=== PATIENT | female | born 1945 | race Two or more races ===

== ENCOUNTER → 2023-10-19 11:09 | Outpatient (REF) | payer MEDICARE, SELFPAY ==
[2023-10-19 15:51] LABS: % Basophils 0.6 % (0-2); % Eosinophils 3.2 % (0-6); % Immature Granulocytes 0.3 % (0-0.5); % Monocytes 9.8 % (1.7-9.3); % Neutrophils 65.1 % (42.2-75.2); Absolute Eosinophils 0.1 10^3/uL (0-0.7); Absolute Lymphocytes 0.7 10^3/uL (1.2-3.4); Absolute Monocytes 0.3 10^3/uL (0.1-0.6); Absolute Neutrophils 2.3 10^3/uL (1.4-6.5); Hematocrit 25.1 % (37.0-47.0); Hemoglobin 8.4 g/dL (12.0-16.0); Mean Corp Hgb Conc. 33.5 g/dL (33.0-37.0); Mean Corpuscular Volume 86.6 fL (81.0-99.0); Mean Platelet Volume 10.5 fL (7.4-10.4); Nucleated Red Blood Cells % 0 %; Platelet Count 280 10^3/uL (130-400); Red Cell Dist. Width 19.8 % (11.5-14.5); Reticulocyte Count 1.6 % (0.4-2.8); White Blood Cell Count 3.5 10^3/uL (4.8-10.8)
[2023-10-19 16:14] LABS: ALT (SGPT) 22 U/L (0-35); AST (SGOT) 29 U/L (14-36); Albumin 4.1 g/dl (3.5-5.0); Alkaline Phosphatase 74 U/L (38-126); Blood Urea Nitrogen 27 mg/dl (7-17); Calcium 9.5 mg/dl (8.4-10.2); Carbon Dioxide 26 mmol/L (22-30); Chloride 95 mmol/L (98-107); Glucose 82 mg/dl (70-99); Potassium 4.8 mmol/L (3.5-5.1); Sodium 130 mmol/L (135-145); Total Bilirubin 0.5 mg/dl (0.2-1.3); eGFR > 60.00
[2023-10-19 16:37] LABS: Normal RBC Morphology No; Target Cells 1+
== END ==
LOC: HWLAB 11:09
PROVIDERS: ATTENDING PHYSICIAN Internal Medicine
DX: R42 Dizziness and giddiness (principal)
CPT/HCPCS: 36415; 80053; 85025; 85045

== ENCOUNTER 2023-10-24 21:24 | Inpatient (IN) | payer MEDICARE, SELFPAY ==
[2023-10-24] VITALS (9 sets, daily range): BP systolic 80–96; BP diastolic 48–60; BMI 26.0; BMI 25.8
[2023-10-24 16:56] LABS: % Basophils 0.7 % (0-2); % Eosinophils 2.7 % (0-6); % Immature Granulocytes 0.5 % (0-0.5); % Lymphocytes 32.3 % (20.5-51.1); % Monocytes 10.2 % (1.7-9.3); % Neutrophils 53.6 % (42.2-75.2); Absolute Eosinophils 0.1 10^3/uL (0-0.7); Absolute Lymphocytes 1.3 10^3/uL (1.2-3.4); Absolute Monocytes 0.4 10^3/uL (0.1-0.6); Absolute Neutrophils 2.2 10^3/uL (1.4-6.5); Hematocrit 25.9 % (37.0-47.0); Hemoglobin 8.8 g/dL (12.0-16.0); Mean Corpuscular Hgb 29.3 pg (27.0-31.0); Mean Corpuscular Volume 86.3 fL (81.0-99.0); Mean Platelet Volume 9.6 fL (7.4-10.4); Nucleated Red Blood Cells % 0 %; Platelet Count 284 10^3/uL (130-400); Red Cell Dist. Width 19.9 % (11.5-14.5)
[2023-10-24 17:09] LABS: ALT (SGPT) 16 U/L (0-35); AST (SGOT) 26 U/L (14-36); Albumin 3.9 g/dl (3.5-5.0); Alkaline Phosphatase 71 U/L (38-126); Blood Urea Nitrogen 21 mg/dl (7-17); Calcium 9.2 mg/dl (8.4-10.2); Carbon Dioxide 23 mmol/L (22-30); Chloride 96 mmol/L (98-107); Estimated Creatinine Clearance 62 ml/min; Glucose 131 mg/dl (70-99); Sodium 130 mmol/L (135-145); Total Bilirubin 0.5 mg/dl (0.2-1.3); Total Protein 6.8 g/dl (6.3-8.2); eGFR > 60.00
[2023-10-24 17:20] LABS: Troponin I < 0.012 ng/ml
--- NOTE | 2023-10-24 19:44 | CON.CAR ---
Consultation
Consultation Request
Date/Time Consultation Requested: 10/24/2023 7 PM
Date/Time Consultation Performed: October 24, 2023 7:45 PM
Requesting Provider: Emergency room
Performing Provider: Elia Jones
Reason for Consultation: Syncope junctional rhythm
Medical History
-
Chief Complaint: Syncope
History of Present Illness:
78-year-old female past medical history of paroxysmal atrial fibrillation status post 2 ablations, SVT, hypertension, and hypercholesterolemia who is here today after syncopal episode. She tells me she woke up and was in her normal state of health
took all of her medications went to yoga and then came home. She then took a shower around 11 AM and afterwards felt her heart rate was fast. She took an extra verapamil at that time, however, this failed to bring her heart rate down. So again
she took another dose of verapamil this afternoon and then went to mushroom picker her grandson from school. She was in the parking lot while waiting to mushroom picker her son when she was talking with her daughter and was not feeling unwell. She was feeling
lightheaded dizzy and as if she was going to pass out. The daughter then said that the phone went blank she then hung up the phone and called the school to get them to go check on her mother. She had then passed out. An ambulance was called and
she was brought to the emergency room. She says that she was at [facility] and had similar feelings. She was unable to continue walking around the store and had to sit down. After period of 20 to 30 minutes she was then able to get up and go home.
She did not check her pulse at that time. She otherwise denies any ischemic or heart failure symptoms.
In the emergency room she appears to be in a junctional rhythm with low blood pressures. However, she is feeling okay as long as she is not up and moving about. I discussed with them my concern for possible sick sinus syndrome or tachybradycardia
syndrome. It is difficult to discern as she has taken verapamil and metoprolol. However, we will have our EP team see her for possible placement of a pacemaker.
Past Medical History
Past Medical History: Other (Breast cancer status postlumpectomy and radiation, hypothyroidism, SVT, paroxysmal atrial fibrillation status post 2 ablations, hypertension, hyperlipidemia)
Past Surgical History: Other (Appendectomy mastectomy lumpectomy)
Social History
Tobacco: Non-Smoker
Alcohol: None
Drug: None
Employment: Retired
Family History
Family History: Reviewed & Not Pertinent
Allergies / Home Medications
Allergy/AdvReac Type Severity Reaction Status Date / Time
No Known Allergies Allergy Verified 01/30/23 08:59
Medication Instructions Recorded Confirmed Type
levothyroxine 75 mcg tablet 75 mcg PO DAILY Thyroid 06/29/16 04/03/23 History
apixaban 5 mg tablet (Eliquis) 5 mg PO BID Blood Clot 05/25/17 04/03/23 History
Prevention/Tx
metoprolol succinate 50 mg 50 mg PO DAILY ##90 07/27/17 04/03/23 Rx
tablet,extended release 24 hr
alendronate 70 mg tablet (Fosamax) 70 mg PO QWEEK osteoporosis 12/28/22 04/03/23 History
latanoprost 0.005 % eye drops 1 drp ophthalmic (eye) QPM Eye 12/28/22 04/03/23 History
Condition
losartan 25 mg tablet 25 mg PO DAILY Blood Pressure 12/28/22 04/03/23 History
verapamil 120 mg tablet,extended 120 mg PO DAILY Arrhythmia 01/30/23 04/03/23 History
release
acetaminophen 325 mg capsule 650 mg PO QID PRN Pain #60 caps 04/03/23 Rx
(Tylenol)
polyethylene glycol 3350 17 gram 17 g PO DAILY #14 ea 04/03/23 Rx
oral powder packet (Miralax)
Review of Systems
-
All other systems: Negative unless noted
Physical Exam
Vital Signs
Temp Pulse Resp BP Pulse Ox
97.6 F 43 18 85/60 98
10/24/23 16:23 10/24/23 19:30 10/24/23 19:30 10/24/23 19:00 10/24/23 19:30
Lab Results
10/24/23 16:41
10/24/23 16:41
Troponin I < 0.012 ng/ml 10/24/23 16:41
Physical Exam
General: Well Developed and No Apparent Distress
HEENT: Normocephalic
Respiratory: Clear and Non Labored Respirations
Cardiac: Other (Bradycardic no murmurs rubs or gallops)
GI: Soft
Musculoskeletal: No Edema
Skin: Warm and Dry
Neuro: AO x 3
Psych: Calm
Impression / Plan
-
78yo female known to Dr Simmons, with past medical history of paroxysmal atrial fibrillation status post 2 ablations, SVT, hypertension, hyperlipidemia, and breast cancer who is here today for accidental overdose of verapamil.
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
- Pacer pads should be placed on the patient, with Isoproterenol or dopamine near in case of progressive HB
- avoid AV soco agent
- will have EP evaluate in AM
- NPO after midnight
- ECG in AM
HTN
- hold anti-HTN meds
anemia
- chronic per primary
hyponatremia
- per primary
Hypthyroid
- TSH level
Data Reviewed
-
EKG: Tracing Personally Visualized and interpreted, Report Reviewed by me, Discussed with Physician, Discussed with Patient and Discussed with Family
Medical Tests (Nuc Med, Echo etc): Report Reviewed by me
Labs: Labs Reviewed by me, Discussed with Patient and Discussed with Family
[2023-10-24] MEDS: NSS 1000 IV (19:46)
--- NOTE | 2023-10-24 19:51 | HPS.HSE ---
Family Physician
-
Family Physician: Jay Penaloza
Chief Complaint
-
dizziness
History of Present Illness
Ms. Rebecca Garber is a 78 yo woman with hx afib on eliquis, HTN, HLD, anemia who presents to the ER with dizziness. Patient reports taking two extra dose of Verapamil earlier today in setting of afib with RVR. She has an apple watch and her heart
rate was in the 160's earlier today. She took an extra dose of her Verapamil, which she has occasionally in the past and her small business consultant instructed her to do so. A couple of hours later her heart rate remained in the 110's. She took a second
extra dose. Patient initially felt well but on her way to sweet pickled fruit maker her grandson she had change in vision and dizziness. She had an episode of syncope in the school parking lot. EMS was called and she was brought here.
Currently patient has mild weakness and dizziness but overall feeling better. No chest pain, no headache, no shortness of breath, no abdominal pain. Earlier today she felt well enough to do yoga. She denies LE swelling.
She had an ablation x 2 last summer with return of afib.
Medical History
Past Medical History
Past Medical History: Reports Other (afib on eliquis, HTN, HLD, anemia )
Past Surgical History: Reports None
Social History
Tobacco: Non-smoker
Alcohol: None
Family History
Family History: Not pertinent
Allergies / Home Medications
Allergies reflects when Allergies were last updated in [facility].
Home Medications with original date entered in [facility]
Allergy/Medication List:
Allergies
Allergy/AdvReac Type Severity Reaction Status Date / Time
No Known Allergies Allergy Verified 01/30/23 08:59
Home Medications
apixaban 5 mg tablet (Eliquis) 5 mg PO BID Blood Clot Prevention/Tx 05/25/17
metoprolol succinate 50 mg tablet,extended release 24 hr 50 mg PO DAILY ##90 07/27/17
alendronate 70 mg tablet (Fosamax) 70 mg PO SORENSEN@0800 osteoporosis 12/28/22
latanoprost 0.005 % eye drops 1 drp LEFT EYE HS Eye Condition 12/28/22
losartan 25 mg tablet 25 mg PO DAILY Blood Pressure 12/28/22
verapamil 120 mg tablet,extended release 120 mg PO DAILY Arrhythmia 01/30/23
Calcium 600 + D(3) 1 tab PO DAILY 10/24/23
ferrous sulfate 325 mg (65 mg iron) tablet (iron) 325 mg PO DAILY 10/24/23
levothyroxine 88 mcg tablet 88 mcg PO DAILY 10/24/23
therapeutic multivitamin 1 tab PO DAILY PRN supplement 10/24/23
Review of Systems
-
History Source: Patient
A 12 point ROS was completed and negative except as noted: Yes
Physical Exam
Vital Signs
Vital Signs
Temp Pulse Resp BP Pulse Ox
97.6 F 43 16 96/56 98
10/24/23 16:23 10/24/23 19:47 10/24/23 19:47 10/24/23 19:47 10/24/23 19:30
Physical Exam
General: No Apparent Distress
HEENT: PERRLA
Respiratory: Clear; No Wheezes
Cardiac: Bradycardia
GI: Soft and Non Tender
Musculoskeletal: No Edema
Skin: Warm and Dry; No Rash
Neuro: AO x 3
Psych: Calm
Laboratory Results
-
10/24/23 16:41
10/24/23 16:41
Laboratory Results
Total Bilirubin 0.5 mg/dl (0.2-1.3) 10/24/23 16:41
AST 26 U/L (14-36) 10/24/23 16:41
ALT 16 U/L (0-35) 10/24/23 16:41
Alkaline Phosphatase 71 U/L (38-126) 10/24/23 16:41
Troponin I < 0.012 ng/ml 10/24/23 16:41
Data Reviewed
-
Diagnostic Radiology: Report Reviewed by me
Lab Data: Labs Reviewed by me
Impression/Plan
-
Ms. Rebecca Garber is a 78 yo woman with hx afib on eliquis, HTN, HLD, anemia who presents to the ER with dizziness. Patient reports taking two extra dose of Verapamil earlier today.
Triage VS: hypotensive to 80's/50's with HR 40's
EKG: junctional rhythm 58
Labs: WBC 4.0, Hg 8.8, PLT 284, Na 130, Cl 96, BUN 21, Cr 0.7, Glucose 131, iver enzymes WNL
MAR: 1L IVF
Symptomatic Bradycardia
Hypotension
Paroxysmal Atrial Fibrillation
Atrial Fibrillation with rVR
-bradycardia 2/2 2 extra doses of verapamil. patient had afib with RVR this morning; concern for tachybrady syndrome
-admit to IVU
-hold KNOBBER Verapamil, Metoprolol
-hold KNOBBER Losartan
-receiving IVF in ER
-pacer pads on patient overnight in case HR drops further; dopamine versus isoproterenol if HR drops further
-hold eliquis in case need for PPM; NPO after MN
Essential Hypertension
-hold KNOBBER Losartan
Anemia
-Hg at baseline
-monitor
Hypothyroidism
-KNOBBER Synthroid
-F/U TSH
Hyperlipidemia
DVT PPx SCD
DNR - asked with daughter at bedside.
--- NOTE | 2023-10-24 19:54 | ED.GENMED ---
History of Present Illness
General
Chief Complaint: Fainting Sensation
Source: patient
Exam Limitations: none
Time Seen by Provider: 10/24/23 17:47
Nursing documentation reviewed up to this point in time: agreed with
Travel History
Have you had any contact with someone who has COVID-19?: No
Do you have any symptoms of coronavirus? Fever > 100 degrees, chills, cough, shortness of breath, sore throat, loss of taste or smell, muscle aches, or headache?: No
History of Present Illness
History of Present Illness:
Patient is a 78-year-old female with history A-fib on Eliquis, hypertension, hyperlipidemia, anemia presenting via EMS after syncopal episode. Patient states that this morning her watch told her that her heart rate was in the 160s. She took an
extra dose of her verapamil 120 as recommended by her records specialist. Her heart rate decreased to approximately 120s. She then decided to take 1 more dose of the verapamil 120. Approximately 2 hours later she was in the carpool line picking up her
grandson at school when she felt very lightheaded and had a syncopal episode. She did not sustain any injuries. Her car was in park at the time. The official the school called 911.
On arrival to the emergency department she is bradycardic in the 40s, hypotensive in 80s/50s. She still feels lightheaded. She denies any chest pain, shortness of breath, nausea, vomiting, or diaphoresis.
She has a prescription for metoprolol XL 50 Mg daily and verapamil 120 mg daily. According to EMS reports she was given 0.5 mg atropine en route.
Patient has had multiple ablations for atrial fibrillation.
Past History
Past History
ED Past Medical History: Arrthythmia (A fib, SVT), Cancer (Breast cancer), HTN, Hypothyroidism and Other (breast CA)
ED Past Surgical History: Cardiac (A-fib ablation 2016, December 2022, January 30, 2023) and Other (lumpectomy with mastectomy)
Social History
Tobacco: Non-smoker
Alcohol: None
Personal:
Living: with family
Employment: Retired
Family History
Family History: Other (Noncontributory)
Phy Exam
Physical Exam
Physical Exam:
General: In no apparent distress
Vitals: Bradycardic, hypotensive
HEENT: Atraumatic, normocephalic; pupils equal round reactive light bilaterally, extraocular's intact, protecting airway; dry mucous membranes
Neck: appears supple, no JVD
CV: Bradycardic, regular rhythm, no evidence of cyanosis
Resp: No evidence of respiratory distress, lungs clear, no accessory muscle use
Abd: Soft, nontender, non-distended
Extremities: No deformities, no evidence of cyanosis or edema
Neuro: alert and oriented to person, place, time; speech normal, no focal motor or neurologic deficits
Psych: Normal affect
Skin: Intact, no rashes
Course
Orders/Labs/Results
Orders:
Orders
10/24/23 16:37
Electrocardiogram (*1) Urgent
Reason for Study: Syncope
EKG- Treatment ONCE
10/24/23 16:41
CMP [Comprehensive Metabolic Panel] Urgent
Complete Blood Count/With Diff Urgent
Magnesium Urgent
Comment: ADD ON
TSH Urgent
Comment: ADD ON
Troponin I Urgent
10/24/23 19:43
0.9% Sodium Chloride 1000 ml [Nss] 1,000 ml IV BOLUS
10/24/23 20:12
0.9% Sodium Chloride 500 ml [Nss] 500 ml IV BOLUS
10/24/23 20:25
Admit/Transfer Patient As Directed
Co-Sign Provider:
Level of Care: Inpatient admission
Assign to:: IVU
Physician / Group: Divya Gonzalez
Diagnosis: symptomatic bradycardia
Reason for Hospitalization: symptomatic bradycardia
Expected length of stay greater than two midnights?: Yes
ELOS- Estimated Length of Stay in days: 3
I certify the patient meets the requirements for IP care: Yes
10/24/23 20:26
Code Status As Directed
Resuscitation Status: Do not resuscitate
Reached after discussion with pt or family/Healthcare POA: Yes
DNR Bracelet Application ONCE
10/24/23 20:36
Add On- LAB Routine
Tests Added?: TSH
10/24/23 20:39
Add On- LAB Urgent
Tests Added?: magnesium
Abnormal Lab Results
10/24/23
16:41
WBC 4.0 L 10^3/uL
(4.8-10.8)
RBC 3.00 L 10^6/uL
(4.20-5.40)
Hgb 8.8 L g/dL
(12.0-16.0)
Hct 25.9 L %
(37.0-47.0)
RDW 19.9 H %
(11.5-14.5)
Monocytes % 10.2 H %
(1.7-9.3)
Sodium 130 L mmol/L
(135-145)
Chloride 96 L mmol/L
(98-107)
BUN 21 H mg/dl
(7-17)
Glucose 131 H mg/dl
(70-99)
10/24/23 16:41
10/24/23 16:41
Vital Signs
Initial and Last Documented VS:
Initial Vital Signs
Temp Pulse Resp BP Pulse Ox
97.6 F 65 18 92/57 97
10/24/23 16:23 10/24/23 16:23 10/24/23 16:23 10/24/23 16:23 10/24/23 16:23
Last Documented Vital Signs
Temp Pulse Resp BP Pulse Ox
97.6 F 43 14 96/56 98
10/24/23 16:23 10/24/23 20:00 10/24/23 20:00 10/24/23 19:47 10/24/23 20:00
MDM/Problems Addressed
Differential Diagnosis Includes:
Symptomatic bradycardia, hypotension, verapamil overdose, vasovagal syncope, atrial fibrillation
MDM/Problems Addressed:
Patient is 78-year-old female presenting via EMS following syncopal event. She is bradycardic and hypotensive on arrival. She remains lightheaded. No chest pain, shortness of breath, nausea, diaphoresis. Patient endorses taking 2 extra verapamil
120 mg earlier today due to having a higher heart rate per her watch. EKG obtained in triage shows bradycardia, junctional rhythm. Vital signs on arrival are heart rate in 40s, hypotensive to 80s/50s. O2 sat 98 on room air. Patient is awake and
alert, talking. She does endorse still feeling lightheaded and tired.
Labs obtained in triage show CBC with mild leukocytosis of 4.0 and anemia with hemoglobin of 8.8�which appears chronic for patient. CMP shows hyponatremia of 130, elevated BUN 21. Otherwise no clinically significant. Troponin negative. Will start
IV fluids.
Patient is stable emergency department. Suspect bradycardia and hypotension are related to ingestion of verapamil. Consulted cardiology who recommend admission to hospitalist for further monitoring. If symptoms worsen�they recommend placing pacer
pads and/or starting dobutamine. Will place pacer pads emergency department now in case condition worsens. Admitted to hospitalist.
Chronic conditions affecting care:
Atrial fibrillation, hypertension, anemia
Acute Exacerbation and/or Progression of Chronic Illness:
Symptomatic bradycardia, symptomatic hypotension
*Pulse Oximetry
Patient hypoxic: no
*EKG
Interpreted by ED Provider?: Yes
EKG Intrepretation Date: 10/24/23
Interpretation: abnormal
Comparison EKG: changes noted
Heart Rate: 58
Rate: bradycardiac
Rhythm: junctional
[place]: normal axis
Interval: normal interval
QRS Pattern: normal QRS
Ischemia: no ischemia
*Wave Solder Offbearer Interpretation
Rate: bradycardiac
Interpretation: abnormal
Heart Rate: 46
Rhythm: junctional
*Critical Care Note
Total Time (30-74mins, 75-104mins- exclusive of procedures): Not Applicable
ED Attending Note
-
Portions of this chart may have been created with voice recognition software.� Occasional wrong word or��sound alike� substitutions may have occurred due to the inherent limitations of voice recognition software.
Discharge Plan
Departure
Patient Disposition: Admit
Date of Disposition: 10/24/23
Time of Disposition: 19:50
Presentation/result/management discussed w/ accepting MD/DO: Hospitalist
Discharge Problem:
Symptomatic bradycardia, Symptomatic hypotension
Interventions
Interventions:
*Risk Screen - Suicide Last Done: 10/24/23 16:30
*General Assessment Last Done: 10/24/23 16:30
*Neglect/Abuse Screening Last Done: 10/24/23 16:30
ED- Fall Risk Assessment Last Done: 10/24/23 16:30
*ED COVID-19 Vaccine History Last Done: 10/24/23 16:30
ED- Cardiac Assessment Last Done: 10/24/23 16:30
ED- Neurological Assessment Last Done: 10/24/23 16:30
[2023-10-24] MEDS: NSS 500 IV (20:15)
[2023-10-24 21:13] LABS: Magnesium 2.2 mg/dl (1.6-2.3)
[2023-10-24] MEDS: LR 1000 IV (23:36)
[2023-10-24] MEDS: XALATAN OPHTHALMIC SOLUTION 1 DROP LEFT EYE (23:36)
[2023-10-25] VITALS (16 sets, daily range): BP systolic 108–153; BP diastolic 54–79; BMI 25.8
--- NOTE | 2023-10-25 00:50 | PTCARENOTE ---
Assumed care of patient at 2300. Patient found in bed at time of assessment. Some admission questions still pending at the time these were completed check worklist for details. Patient is AOx4, follows all commands appropriately, moves all
extremities. Patient speaks Telugu and Cristiana fluently. Lung sounds are diminished at the bases, patient is on RA saO2 at 100%. Heart sounds irregular on auscultation, negative edema, weak but palpable r radial and normal palpable left radial. HR
was in the 40s sinus bradycardia, but has improved to 60s. Patient's heart rhythm is now sinus rhythm with first degree AV block and BBB. Patient reports some mild lightheadedness when standing. Cap refill <2 seconds BUE. Patient has normal palpable
dorsalis pedis pulses. Patient has a soft nontender abdomen with active BS throughout all four quadrants. Patient is continent of bowel and bladder. Voiding clear yellow urine utilizing bedside commode. Skin is intact. Patient has R wrist 22 gauge
receiving LR@80mL/hr and R AC available for intermittent infusion. Patient has LUE restriction due to prior masectomy. Patient has no complaints at this time. Assisted patient to bedside commode and back to bed without incident. Patient is stable.
--- NOTE | 2023-10-25 03:25 | PTCARENOTE ---
Patient reassessed. VSS. Patient remains in SR with first degree AV block and BBB. AM labs obtained. Patient c/o 'cramps' in legs 2/2 restless leg syndrome. Tylenol offered patient reports 'it does not help'. Applied warm compress to patient RLE
that was effective in relieving cramps.
[2023-10-25 03:28] LABS: % Basophils 0.7 % (0-2); % Eosinophils 0.5 % (0-6); % Immature Granulocytes 0.2 % (0-0.5); % Lymphocytes 16.1 % (20.5-51.1); % Monocytes 6.6 % (1.7-9.3); % Neutrophils 75.9 % (42.2-75.2); Absolute Lymphocytes 0.7 10^3/uL (1.2-3.4); Absolute Monocytes 0.3 10^3/uL (0.1-0.6); Absolute Neutrophils 3.4 10^3/uL (1.4-6.5); Hematocrit 21.7 % (37.0-47.0); Hemoglobin 7.6 g/dL (12.0-16.0); Mean Corpuscular Hgb 28.1 pg (27.0-31.0); Mean Corpuscular Volume 80.4 fL (81.0-99.0); Mean Platelet Volume 9.4 fL (7.4-10.4); Nucleated Red Blood Cells % 0 %; Platelet Count 212 10^3/uL (130-400); Red Cell Dist. Width 18.9 % (11.5-14.5); White Blood Cell Count 4.4 10^3/uL (4.8-10.8)
[2023-10-25 03:40] LABS: Blood Urea Nitrogen 23 mg/dl (7-17); Calcium 8.4 mg/dl (8.4-10.2); Carbon Dioxide 17 mmol/L (22-30); Chloride 93 mmol/L (98-107); Estimated Creatinine Clearance 62 ml/min; Glucose 105 mg/dl (70-99); Potassium 4.8 mmol/L (3.5-5.1); Sodium 122 mmol/L (135-145); eGFR > 60.00
--- NOTE | 2023-10-25 07:03 | W.PN.CD ---
Today's Communication / Plan
-
EPS to see about PPM. PT NPO
HR improving
Impression / Plan
-
78yo female pt of Dr Simmons, with past medical history of paroxysmal atrial fibrillation status post 2 ablations, SVT, hypertension, hyperlipidemia, and breast cancer who is here today for accidental overdose of verapamil. She tells me she had
near syncope a week ago and then yesterday developed palps with HR 106s. Took her ususal metoprolol and verapamil then took a second dose late AM and HR stayed in 130s so she took a third dose of verapamil. Then felt lightheaded for next few hours
and somehow got in car to go to school to cotton picker grandson then had syncope
Syncope: Does appear to be related to SSS. She has on telem mostly SR with first degree AVB but on ECG there is junctional rhythm. Apparently HR in 30s in ER. I think PPM is an appropriate insurance policy here. I suspect hypotension from the
antihypertensive effects of verapamil at the dose she took (120 mg SR x 3) also played a role in her lightheadedness then syncope. Dr Martínez will see and make decision about PPM. She is NPO in case he wishes to proceed. Going forward probably best
to take metoprolol in AM and verapamil in PM
HTN
- hold anti-HTN meds
anemia
- chronic per primary and a bit worse with Hb 7.6 this AM
- Apparently has seen Dr Anderson and had a BM bx. Ferritin, Fe, TIBC, B12 and folate were normal in .
hyponatremia
- Na 122 today
-Reportedly Na runs low. Could be down with IVF
Hypthyroid
- TSH level 4.1 on 10-24
Physical Exam
Vital Signs/Labs
Vital Signs
Temp Pulse Resp BP Pulse Ox
98.7 F 61 20 108/54 92
10/25/23 03:07 10/25/23 03:15 10/25/23 03:07 10/25/23 03:00 10/25/23 03:07
10/24/23 10/25/23 10/26/23
06:59 06:59 06:59
Actual Weight 154 lb 12.232 oz
10/25/23 03:17
10/25/23 03:17
Magnesium 2.0 mg/dl (1.6-2.3) 10/25/23 03:17
TSH 4.10 uIU/ml (0.47-4.68) 10/24/23 16:41
LAB Results
10/24/23
16:41
Troponin I < 0.012
Physical Exam
Constitutional: No acute distress
Cardiovascular: Rhythm & rate is regular and Murmur/rub/gallop absent
Respiratory: Respiratory effort normal, Lungs clear to auscul., Wheeze Absent and Crackles Absent
GI: Soft, Flat and Non tender
Neuro/Psych: AO x 3 and Motor deficits absent
Data Reviewed
-
Date of Service: October 25, 2023
[2023-10-25] MEDS: SYNTHROID 88 MCG PO (07:56)
[2023-10-25] MEDS: FEOSOL PO (08:03)
--- NOTE | 2023-10-25 08:34 | W.PN.HOSP.TC ---
Addendum entered and electronically signed by Radha Gee MD 10/25/23 10:50:
Consult GI for anemia
Original Note:
Today's Communication/Plan
-
see A/P
Assessment / Plan
Assessment / Plan
78 yo woman with PMH afib on eliquis, HTN, HLD, anemia who presented to the ER with dizziness.� Patient reports taking two extra dose of Verapamil earlier in setting of afib with RVR.� She has an apple watch and her heart rate was in the 160's
earlier.� She took an extra dose of her Verapamil, which she has occasionally in the past and her gem setter instructed her to do so.� A couple of hours later her heart rate remained in the 110's.� She took a second extra dose.� Patient initially
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
She had an ablation x 2 last summer�with return of afib.�
A/P:
# Symptomatic Bradycardia
# Hypotension, resolved
# Paroxysmal Atrial Fibrillation
# Atrial Fibrillation with RVR
bradycardia due to 2 extra doses of verapamil.�Patient had afib with RVR; concern for tachybrady syndrome
hold PHARMACOVIGILANCE SCIENTIST Verapamil, Metoprolol
s/p IVF in ER
pacer pads on patient overnight in case HR drops further; dopamine versus isoproterenol if HR drops further
hold Eliquis
# Hyponatremia
Check Urine sodium/Osm, Serum Osm
follow sodium level
# Essential Hypertension
resume PHARMACOVIGILANCE SCIENTIST Losartan with holding parameter
IV hydralazine PRN
# Anemia
Hgb dropped likely due to hemodilution from IVF
Check iron panel, B12, folate
Cont PHARMACOVIGILANCE SCIENTIST ferrous sulfate
Will transfuse 1 unit PRBC 10/25
# Hypothyroidism
PHARMACOVIGILANCE SCIENTIST Synthroid
TSH 4.10
# Hyperlipidemia
DVT PPx SCD
DNR - asked with daughter at bedside.�
DW daughter on the phone
Anticipated Discharge: 24 - 48 hours
Subjective/Interval History
-
Date of Service: October 25, 2023
Objective Data
-
Labs:
Laboratory Results
10/25/23
03:17
WBC 4.4 L
Hgb 7.6 L
Hct 21.7 L
Plt Count 212 D
Sodium 122 L D
Potassium 4.8
Chloride 93 L
Carbon Dioxide 17 L
BUN 23 H
Creatinine 0.7
Glucose 105 H
Calcium 8.4
Vital Signs:
Vital Signs
Temp Pulse Resp BP Pulse Ox
36.3 C 66 20 148/65 94
10/25/23 08:04 10/25/23 08:06 10/25/23 08:04 10/25/23 08:06 10/25/23 08:04
I&O
10/24/23 10/25/23 10/26/23
06:59 06:59 06:59
Intake Total 320 / 320
Output Total 250 / 250
Balance 70 / 70
Review of Systems
-
All other systems: Reviewed and negative
Physical Exam
-
General: Well Developed, Well Nourished, No Apparent Distress, Comfortable and Conversant; Negative Respiratory Distress
HEENT: Normocephalic, Atraumatic, Nose Appears Normal and Ears Appear Normal; Negative Oxygen
Respiratory: Clear to Auscultation and Non Labored Respirations; Negative Accessory Resp Muscle Use
Cardiac: Regular Rhythm and S1/S2
GI: Soft, Nontender, Nondistended and Normal Bowel Sounds
Skin: Warm and Dry
Neuro: Awake, Alert, Oriented, AO x 3 and Nonfocal/Grossly Intact
Psych: Calm and Intact Judgement/Insight
Data Reviewed
-
Labs: Labs Reviewed by me
[2023-10-25 09:52] LABS: Osmolality Urine 260 mOsm/kg (300-900)
[2023-10-25 09:59] LABS: Urine Sodium 42 mmol/L (30-90)
--- NOTE | 2023-10-25 10:42 | W.PN.CD ---
Today's Communication / Plan
-
- Transfusion today
- PPM today
- GI consult
Impression / Plan
-
78yo female pt of Dr Simmons, with past medical history of paroxysmal atrial fibrillation status post 2 ablations, SVT, hypertension, hyperlipidemia, and breast cancer who is here today for accidental overdose of verapamil. She tells me she had
near syncope a week ago and then yesterday developed palps with HR 106s. Took her ususal metoprolol and verapamil then took a second dose late AM and HR stayed in 130s so she took a third dose of verapamil. Then felt lightheaded for next few hours
and somehow got in car to go to school to fruit picker machine operator grandson then had syncope
Syncope:
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 She has on telem mostly SR with first degree AVB but on ECG there is junctional rhythm. Apparently HR in 30s in ER.
- Needs PPM
Tachy Adelfo syndrome
-Paroxysmal SVT - AT
-Needs BB/ Verapamil
-With Syncope and tachycardia alongn with junctional rhythms, she is in need of a PPM
-Discussed with her, her daughter on the phone in detail one by one. she has some additional questions and again answered all questions.
-Plan for PPM today
HTN
- hold anti-HTN meds
anemia
- chronic per primary and a bit worse with Hb 7.6 this AM
- Apparently has seen Dr Anderson and had a BM bx. Ferritin, Fe, TIBC, B12 and folate were normal in .
-On Eliquis, never had colonoscopy, Consult GI
-PPI.
-Transfusion planned today
hyponatremia
- Na 122 today
-Reportedly Na runs low. Could be down with IVF
Hypthyroid
- TSH level 4.1 on -14
Physical Exam
Vital Signs/Labs
Vital Signs
Temp Pulse Resp BP Pulse Ox
97.3 F 66 20 148/65 94
10/25/23 08:04 10/25/23 08:06 10/25/23 08:04 10/25/23 08:06 10/25/23 08:04
10/24/23 10/25/23 10/26/23
06:59 06:59 06:59
Actual Weight 70.2 kg
10/25/23 03:17
10/25/23 03:17
Magnesium 2.0 mg/dl (1.6-2.3) 10/25/23 03:17
TSH 4.10 uIU/ml (0.47-4.68) 10/24/23 16:41
LAB Results
10/24/23
16:41
Troponin I < 0.012
Physical Exam
Constitutional: No acute distress and Comfortable
EENT: Anicteric and Moist mucous membranes
Cardiovascular: Rhythm & rate is regular, Pedal edema is absent, JVD pressure is normal and Systolic murmur present
Respiratory: Respiratory effort normal, Lungs clear to auscul. and Wheeze Absent
GI: Soft, Non tender and Normal bowel sounds
Neuro/Psych: Alert, Oriented, AO x 3 and Motor deficits absent
Other: Cath Site
Data Reviewed
-
Date of Service: October 25, 2023
Medical Decision Making: Reviewed Test Results, Independent Historian Assessment, Test Interpretation and Review of Case with other Provider
EKG: Tracing Personally Visualized and interpreted
Echo: Report Reviewed by me
X-Ray/CT/US/MRI/NUC/PET: Image Personally Visualized and interpreted
Labs: Labs Reviewed by me
Old Records: Reviewed
[2023-10-25 10:43] LABS: Osmolality Serum 266 mOsm/kg (275-300)
[2023-10-25 10:52] LABS: Iron 98 ug/dl (37-170)
[2023-10-25 11:01] LABS: Percent Saturation 29 % (20-50); Total Iron Binding Capacity 336 ug/dl (265-497)
--- NOTE | 2023-10-25 11:24 | CM ---
Chart reviewed. Patient is independent of ADLS, lives alone in a 2 STH, 1st floor set up, 0 JASMEET, 0 DME. Patient with a supportive family and currently no discharge needs. Plan is for the patient to return home. CM to follow
[2023-10-25 11:33] LABS: Vitamin B12 894 pg/ml (239-931)
[2023-10-25 13:52] LABS: Folate 18.1 ng/ml (2.76-20)
--- NOTE | 2023-10-25 14:08 | ITS.CL.PACE ---
Metallurgical Laboratory Assistant - Pacemaker Implant
Pacemaker Implant
Procedure Report:
Dual Chamber Pacemaker Placement:
Ms. Garber is a very pleasant 78 yrs old woman who presented with Tachy Adelfo syndrome and severe bradycardia with syncope and is recommended for PPM placement.�
Indications: Tachy Adelfo syndrome
Date of the Procedure: 10/25/23
Pre-Operative Diagnosis: Tachy Adelfo syndrome
Post-Operative Diagnosis: Tachy Adelfo syndrome
Procedure Performed: DUAL CHAMBER PACEMAKER IMPLANTATION
Performing Physician:
Sydnie Martínez MD
Assistants:
EP staff
Anesthesia:
See anesthesia report
Pre-operative antibiotics:
Ancef
Detailed Description of the Procedure:
The patient was identified using hospital identification and informed consent obtained for the procedure. The risks were explained including, but not limited to: Bleeding, infection, arrhythmia, stroke, vascular/cardiac/lung puncture, surgery,
pacemaker dependency/device malfunction. All questions were answered.
The patient was brought to the electrophysiology laboratory in stable condition in fasting state. Continuous electrocardiographic and hemodynamic monitoring was initiated.
The initial rhythm was normal sinus rhythm.
A surgical pause and time out was performed immediately prior to the procedure with review of her medical history, recent labs, allergies and medications with site of procedure identified and consent noted in the chart. Antibiotics pre operatively
given. All team members concurred.
The procedure site was meticulously prepared with surgical scrub and allowed to dry with no pooling. Sterile draping was applied to cover the procedure site. The image intensifier was draped with sterile bag and positioned over the patient.
The left infraclavicular region was prepped and draped in the usual sterile fashion. Local anesthesia was administered subcutaneously using 1% lidocaine / Bupivacaine. The left cephalic vein cutdown was performed with an incision at the
delto-pectoral groove, and vascular sheaths were introduced for lead access. These were advanced into the right ventricle and the right atrium.
The right ventricular lead was secured in position with an active fixation technique at the apical septal location.
The RA lead was attached in the right atrial appendage with active fixation.
There was excellent sensing, pacing, and impedance from the leads, with no diaphragmatic stimulation at 10 V output.�Bovie cautery, antibiotics, and fluoroscopy were used.
The sheaths were withdrawn, and the thresholds remained acceptable. The leads were secured in position at the venous entry site with 0-silk. A pocket was fashioned contiguous to the incision. The electrode terminals were connected to the pulse
generator, which was placed into the pocket. The wound was irrigated thoroughly with antibiotic solution.
The wound was closed in 3 layers using 2-0 V loc then two layers of 4-0 V loc sutures to the dermis. Steri-strips were applied externally and covered with Aquacel bandage.
Procedure End:
The procedure was tolerated well.
Estimated Blood loss:
10 cc
Specimens Removed:
No cultures and no specimens were obtained. No intraoperative pathology was identified.
Fluoro time:
2.2min / 4.27mGy
Urine output:
None
Packs / Drains/ Tubes:
None
Instrument / Sponge Count Correct:
Yes
Complications of the Procedure:
None
Condition of Patient at Time of Transfer:
Hemodynamically stable with no neurological or vascular compromise.
Device information:�
Generator: Intradiem; Model: W1DR01; Serial # [id number]�
Atrial Lead:
Intradiem; Model: 5076-52; Serial # [id number]
Measured data in the right atrium was sensing of 2.2 mV, impedance of 450 ohms and threshold of 0.5 V at 0.4ms.
RV Lead:
Medtronic; Model: 5076-58; Serial # [id number]
Measured data in the RV lead was sensing of 12 mV, impedance of 890 ohms and threshold of 1.0 V at 0.4ms�
Adelfo parameter settings were AAIR < = > DDDR 70-130 bpm. �
����������� Mode Switch: On
����������� Paced AV interval: 180ms
����������� Sensed AV interval: 150 ms.
����������� Rate Adaptive A-V Interval: Off
Output parameters:
����������������������� Amplitude (V)������������� Pulse Width (ms)������� Sensitivity (mV)
����������� RA: ���� 3.5 ����������������� ����������� 0.4������������������ ����������� 0.3
����������� RV:����� 3.5������������������ ����������� 0.4������������������ ����������� 0.9
Summary:
Successful implantation of MRI compatible dual chamber pacemaker
Results/Recommendations:
-Please follow up CXR�
1. Please provide patient with adequate pain control�
Instructions to be given to patient:�
- Please follow up with [facility] at [address] [place] [address] ([phone]) to get your wound checked within 14 days of your discharge.
- Do not wet incision site until after it is evaluated at cardiology clinic. No soaking or bath until then. Showers or Sponge baths are OK.�Dab dry the area after a shower.
- Do not lift left elbow above shoulder, particularly with sudden jerking movements, for 1 month�
- Do not lift anything weighing more than 10 pounds with the left arm for 1 month�
- If you notice any fevers, shortness of breath, lightheadedness, chest pain, or worsening swelling in the wound site, please contact the arrhythmia clinic, contact your mail order biller, or present to the hospital for evaluation.�
Sydnie Martínez MD
Electrophysiology
--- NOTE | 2023-10-25 14:35 | PTCARENOTE ---
received pt from recovery area. educated on restrictions. left arm immobilizer intact. call izquierdo within reach.
--- NOTE | 2023-10-25 15:47 | CON.GI ---
Consultation
-
Date/Time Consultation Requested: 10/25/23 12:00pm
Date/Time Consultation Performed: 10/25/23 3:47pm
Requesting Provider: Muriel Gee
Performing Provider: Deven Mehta
Reason for Consultation: Anemia
Medical History
Chief Complaint / HPI
Chief Complaint: Anemia
History of Present Illness:
Patient is a 78yo female hx afib admitted for syncopal episode. She noted HR in the 160's and took two extra doses of her verapamil, then had a syncopal episode. In ER HR rina in the 40's. She went for pacemaker placement today. Hgb on
admission was 8.8 and repeat today was 7.6 for which GI was consulted. She denies BPR or melena. Denies NSAIDs. Had colonoscopy with Dr Graff in 2013 negative. She was referred to Dr Anderson last year for anemia, heme negative in PCP office. She
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 No prior EGD. Denies UGI complaints, HB,
dysphagia, abd pain.
Past Medical History
Past Medical History: Arrhythmias (Afib, SVT, hx ablation x 2, breast cancer) and HTN
Past Surgical History: Appendectomy
Social History
Tobacco: Non-Smoker
Alcohol: None
Family History
Family History: Reviewed & Not Pertinent
Allergies / Home Medications
Allergy/AdvReac Type Severity Reaction Status Date / Time
No Known Allergies Allergy Verified 01/30/23 08:59
Medication Instructions Recorded
apixaban 5 mg tablet (Eliquis) 5 mg PO BID Blood Clot 05/25/17
Prevention/Tx
alendronate 70 mg tablet (Fosamax) 70 mg PO SORENSEN@0800 osteoporosis 12/28/22
latanoprost 0.005 % eye drops 1 drp LEFT EYE HS Eye Condition 12/28/22
losartan 25 mg tablet 25 mg PO DAILY Blood Pressure 12/28/22
verapamil 120 mg tablet,extended 120 mg PO DAILY Arrhythmia 01/30/23
release
Calcium 600 + D(3) 1 tab PO DAILY Supplement 10/24/23
ferrous sulfate 325 mg (65 mg 325 mg PO DAILY Supplement 10/24/23
iron) tablet (iron)
levothyroxine 88 mcg tablet 88 mcg PO DAILY Thyroid 10/24/23
therapeutic multivitamin 1 tab PO DAILY PRN supplement 10/24/23
metoprolol succinate 50 mg 50 mg PO DAILY Blood Pressure 10/25/23
tablet,extended release 24 hr
Review of Systems
-
All other systems: A 12 pt ROS was Negative except as stated above in HPI
Vital Signs
Temp Pulse Resp BP Pulse Ox
97.6 F 89 18 138/78 97
10/25/23 15:07 10/25/23 12:30 10/25/23 15:07 10/25/23 11:35 10/25/23 15:07
Physical Exam
Exam
General: No Apparent Distress
HEENT: Normocephalic and Atraumatic
Respiratory: Non Labored Respirations
GI: Soft, Non Tender and Non Distended
Rectal: Brown and Hem Negative
Skin: Warm and Dry
Results
WBC 4.4 10^3/uL (4.8-10.8) L 10/25/23 03:17
Hgb 7.6 g/dL (12.0-16.0) L 10/25/23 03:17
Hct 21.7 % (37.0-47.0) L 10/25/23 03:17
MCV 80.4 fL (81.0-99.0) L 10/25/23 03:17
Plt Count 212 10^3/uL (130-400) D 10/25/23 03:17
Absolute Neuts (auto) 3.4 10^3/uL (1.4-6.5) 10/25/23 03:17
Sodium 122 mmol/L (135-145) L D 10/25/23 03:17
Potassium 4.8 mmol/L (3.5-5.1) 10/25/23 03:17
Chloride 93 mmol/L (98-107) L 10/25/23 03:17
Carbon Dioxide 17 mmol/L (22-30) L 10/25/23 03:17
BUN 23 mg/dl (7-17) H 10/25/23 03:17
Creatinine 0.7 mg/dL (0.6-1.0) 10/25/23 03:17
Calcium 8.4 mg/dl (8.4-10.2) 10/25/23 03:17
Total Bilirubin 0.5 mg/dl (0.2-1.3) 10/24/23 16:41
AST 26 U/L (14-36) 10/24/23 16:41
ALT 16 U/L (0-35) 10/24/23 16:41
Alkaline Phosphatase 71 U/L (38-126) 10/24/23 16:41
Diagnostic Image Results:
Prior GI Procedures:
EGD:
Colonoscopy:
Assessment / Plan
-
Summary: 78yo female hx Afib noted her HR was 160s so took 2 extra doses verapamil, then had syncopal episode. Noted to be bradycardic in ER and went for pacemaker placement 10/25. Hgb 8.8 on admission, repeat 10/25 dropped to 7.6. No BPR, melena,
NSAIDs. Heme negative at PCP and sent for Heme eval last February BMBx showed CCUS, reports being told she had thalassemia. Colonoscopy 2013 negative. No prior EGD. Iron, B12, folate all normal.
Impression:
Tachybrady s/p pacer 10/25
Anemia. Heme negative rectal 10/25.
Afib on Eliquis
Recommendations:
No signs of active GI bleeding at this time. Heme negative on exam today.
Trend Hgb and if stable, recommend f/u with GI and Hematology as outpt for further w/u of her anemia (CCUS dx on BMBx)
Should get eventual colonoscopy +/- EGD since last colonoscopy in 2013 and no prior EGD, but this can be deferred until OP. Will leave contact on d/c summary
If active bleeding, then will do urgent GI procedures if necessary
Will follow
OK to anticoagulate if needed
-
-
Thank you for consultation and allowing me to participate in the patient's care. Please call the astronaut mission specialist GI physician during the after hours with any questions or concerns.
[2023-10-25] MEDS: ANCEF 5 IV (19:34)
[2023-10-25] MEDS: XALATAN OPHTHALMIC SOLUTION 1 DROP LEFT EYE (22:46)
[2023-10-25] MEDS: TYLENOL 650 MG PO (23:05)
--- NOTE | 2023-10-26 01:20 | PTCARENOTE ---
Physical assessment preformed,pt is awake oriented,reporting pain to left shoulder,5/10.VS stable,SR first degree AVB with intermittent A-Pacing.Afebrile.Left arm immoblizer intact,dry drsg to left upper chest,shoulder area dry and intact.Pt
medicated with Tylenol for pain,relief and sleep followed.Close observation ongoing throughout the night.
[2023-10-26 03:38] VITALS: BP 132/83
[2023-10-26 03:44] VITALS: BP 134/73
[2023-10-26] MEDS: ANCEF 5 IV (03:53)
[2023-10-26 04:24] LABS: Hematocrit 24.9 % (37.0-47.0); Hemoglobin 8.5 g/dL (12.0-16.0); Mean Corp Hgb Conc. 34.1 g/dL (33.0-37.0); Mean Corpuscular Hgb 28.1 pg (27.0-31.0); Mean Corpuscular Volume 82.5 fL (81.0-99.0); Mean Platelet Volume 9.4 fL (7.4-10.4); Platelet Count 197 10^3/uL (130-400); Red Blood Cell Count 3.02 10^6/uL (4.20-5.40); Red Cell Dist. Width 18.1 % (11.5-14.5); White Blood Cell Count 3.8 10^3/uL (4.8-10.8)
[2023-10-26 04:53] LABS: Blood Urea Nitrogen 17 mg/dl (7-17); Calcium 8.5 mg/dl (8.4-10.2); Carbon Dioxide 23 mmol/L (22-30); Chloride 96 mmol/L (98-107); Estimated Creatinine Clearance 72 ml/min; Glucose 79 mg/dl (70-99); Potassium 4.7 mmol/L (3.5-5.1); Sodium 126 mmol/L (135-145); eGFR > 60.00
[2023-10-26 06:00] VITALS: BMI 25.4
[2023-10-26] MEDS: SYNTHROID 88 MCG PO (06:27)
[2023-10-26 07:38] VITALS: BP 142/93
[2023-10-26] MEDS: COZAAR 25 MG PO (07:57)
[2023-10-26] MEDS: FEOSOL 325 MG PO (07:57)
[2023-10-26] MEDS: FLUSH (NSS) 2 FLUSH IV (07:58)
--- NOTE | 2023-10-26 08:48 | W.PN.HOSP.TC ---
Today's Communication/Plan
-
dc home
Assessment / Plan
Assessment / Plan
78 yo woman with PMH afib on eliquis, HTN, HLD, anemia who presented to the ER with dizziness.� Patient reports taking two extra dose of Verapamil earlier in setting of afib with RVR.� She has an apple watch and her heart rate was in the 160's
earlier.� She took an extra dose of her Verapamil, which she has occasionally in the past and her quality control director instructed her to do so.� A couple of hours later her heart rate remained in the 110's.� She took a second extra dose.� Patient initially
felt well but on her way to pick up operator her grandson she had change in vision and dizziness.�She had an episode of syncope in the school parking lot.�EMS was called and she was brought to .
She had an ablation x 2 last summer�with return of afib.�
Assessment:
Symptomatic Bradycardia
Hypotension, resolved
Paroxysmal Atrial Fibrillation
Atrial Fibrillation with RVR
- s/p PPM 10/25
- dc home on Eliquis. resume usual home CCB/BB dosing per Cardiology
Hypotension related hyponatremia (from [facility] release)
- Na 126, pt asymptomatic
- continue OFR at home and repeat BMP 1 week
Essential Hypertension
- continue ARB
Chronic Anemia
- carries diagnosis of CCUS, Thalassemia
- s/p 1 unit PRBC
- GI consulted and for outpatient colonoscopy/EGD
Hypothyroidism
- continue levothyroxine
HLD
DVT ppx: SCDs
Code: DNR
More than 30 minutes spent in discharge including
Final examination of the patient
Summarizing hospital stay
Instructions for continuing care to all relevant caregivers
Preparation of discharge records, prescriptions, and referral forms
Total time spent (in minutes): 41
Anticipated Discharge: Today
Subjective/Interval History
-
Date of Service: October 26, 2023
no new complaints today, feels well after 1 unit PRBC, Hb 8.5
Objective Data
-
Labs:
Laboratory Results
10/26/23
03:50
WBC 3.8 L
Hgb 8.5 L
Hct 24.9 L
Plt Count 197
Sodium 126 L
Potassium 4.7
Chloride 96 L
Carbon Dioxide 23
BUN 17
Creatinine 0.6
Glucose 79
Calcium 8.5
Vital Signs:
Vital Signs
Temp Pulse Resp BP Pulse Ox
97.7 F 82 20 142/93 97
10/26/23 07:36 10/26/23 07:38 10/26/23 07:36 10/26/23 07:38 10/26/23 07:36
I&O
10/25/23 10/26/23 10/27/23
06:59 06:59 06:59
Intake Total 320 / 320 1090 / 1090
Output Total 250 / 250
Balance 70 / 70 1090 / 1090
Physical Exam
-
General: No Apparent Distress
HEENT: Normocephalic and Atraumatic
Respiratory: Negative Wheezes or Rales
Cardiac: Regular Rhythm and S1/S2
GI: Soft and Nontender
Genito-urinary: No Costovertebral Tender
Musculoskeletal: No Edema
Neuro: AO x 3
Hematologic / Lymphatic: No Lymphadenopathy
Psych: Calm
Data Reviewed
-
Total Time Spent with Patient (in minutes): 45
Labs: Labs Reviewed by me
--- NOTE | 2023-10-26 09:40 | W.PN.CD ---
Today's Communication / Plan
-
- PPM pressure dressing removed.
- Atrial paced rhythm
- no change in home meds
- Stable for discharge from cardiac stand point
Impression / Plan
-
78yo female pt of Dr Simmons, with past medical history of paroxysmal atrial fibrillation status post 2 ablations, SVT, hypertension, hyperlipidemia, and breast cancer who is here today for accidental overdose of verapamil. She tells me she had
near syncope a week ago and then yesterday developed palps with HR 106s. Took her ususal metoprolol and verapamil then took a second dose late AM and HR stayed in 130s so she took a third dose of verapamil. Then felt lightheaded for next few hours
and somehow got in car to go to school to pickle maker grandson then had syncope
Syncope:
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 She has on telem mostly SR with first degree AVB but on ECG there is junctional rhythm. Apparently HR in 30s in ER.
-s/p PPM - 10/25/23 - Medtronic dual chamber - MRI compatible.
Tachy Adelfo syndrome
-Paroxysmal SVT - AT
-Needs BB/ Verapamil
-s/p PPM on 10/25/23
- Atrial paced at 75 bpm to suppress AT
HTN
- restart home meds
anemia
- chronic per primary and a bit worse with Hb 7.6 this AM
- Apparently has seen Dr Anderson and had a BM bx. Ferritin, Fe, TIBC, B12 and folate were normal in .
-On Eliquis, never had colonoscopy, Consult GI
-PPI.
-Transfusion on 10/25/23. Hgb is 8.5 today
- Holding Eliquis - restart when acceptable by GI
hyponatremia
- Na 126 today - up from 122.
-Reportedly Na runs low. Could be down with IVF
Hypthyroid
- TSH level 4.1 on -
Physical Exam
Vital Signs/Labs
Vital Signs
Temp Pulse Resp BP Pulse Ox
97.7 F 82 20 142/93 97
10/26/23 07:36 10/26/23 07:38 10/26/23 07:36 10/26/23 07:38 10/26/23 07:36
10/25/23 10/26/23 10/27/23
06:59 06:59 06:59
Actual Weight 70.2 kg 69.2 kg
10/26/23 03:50
10/26/23 03:50
Magnesium 2.0 mg/dl (1.6-2.3) 10/26/23 03:50
TSH 4.10 uIU/ml (0.47-4.68) 10/24/23 16:41
LAB Results
10/24/23
16:41
Troponin I < 0.012
Physical Exam
Constitutional: No acute distress and Comfortable
EENT: Anicteric and Moist mucous membranes
Cardiovascular: Rhythm & rate is regular, Pedal edema is absent and JVD pressure is normal
Respiratory: Respiratory effort normal, Lungs clear to auscul. and Wheeze Absent
GI: Soft, Non tender and Normal bowel sounds
Neuro/Psych: Alert, Oriented and AO x 3
Other: Cardiac Device Site
Data Reviewed
-
Date of Service: October 26, 2023
Medical Decision Making: Reviewed Test Results, Independent Historian Assessment, Test Interpretation and Review of Case with other Provider
EKG: Tracing Personally Visualized and interpreted
Echo: Report Reviewed by me
Labs: Labs Reviewed by me
Old Records: Reviewed
--- NOTE | 2023-10-26 09:55 | W.DS.TRANS ---
DC Summary - [employer]
-
Discharge Instructions:
Discharge Diagnosis/Procedures Pacemaker insertion on 10/25 for bradycardia and
hypotension
Diet Low Cholesterol,Restrict fluids to 48 oz
Activity As tolerated
Driving Restrictions No driving for 1 week
Bathing Restrictions OK to Shower
Instructions:
Stand-Alone Forms: DC Inst - Implanted Device
Changes to Home Medications: No
Discharge Medications:
DC Medications w/original date entered in [facility]
apixaban 5 mg tablet (Eliquis) 5 mg PO BID Blood Clot Prevention/Tx 05/25/17
alendronate 70 mg tablet (Fosamax) 70 mg PO SORENSEN@0800 osteoporosis 12/28/22
latanoprost 0.005 % eye drops 1 drp LEFT EYE HS Eye Condition 12/28/22
losartan 25 mg tablet 25 mg PO DAILY Blood Pressure 12/28/22
verapamil 120 mg tablet,extended release 120 mg PO DAILY Arrhythmia 01/30/23
Calcium 600 + D(3) 1 tab PO DAILY Supplement 10/24/23
ferrous sulfate 325 mg (65 mg iron) tablet (iron) 325 mg PO DAILY Supplement 10/24/23
levothyroxine 88 mcg tablet 88 mcg PO DAILY Thyroid 10/24/23
therapeutic multivitamin 1 tab PO DAILY PRN supplement 10/24/23
metoprolol succinate 50 mg tablet,extended release 24 hr 50 mg PO DAILY Blood Pressure 10/25/23
Home Medication Changes
Pending Results: No
Total time spent discharging patient (in min): 41
[2023-10-26] MEDS: TYLENOL 650 MG PO (11:31)
--- NOTE | 2023-10-26 11:44 | W.PN.GI.CBS2 ---
Today's Communication / Plan
-
outpatient egd/cscope, planning discharge
Assessment / Plan
-
Summary: 78yo female hx Afib noted her HR was 160s so took 2 extra doses verapamil, then had syncopal episode. Noted to be bradycardic in ER and went for pacemaker placement 10/25. Hgb 8.8 on admission, repeat 10/25 dropped to 7.6. No BPR, melena,
NSAIDs. Heme negative at PCP and sent for Heme eval last February BMBx showed CCUS, reports being told she had thalassemia. Colonoscopy 2013 negative. No prior EGD. Iron, B12, folate all normal.
Impression:
Tachybrady s/p pacer 10/25
Anemia. Heme negative rectal 10/25.
Afib on Eliquis
Recommendations:
No signs of active GI bleeding at this time. Heme negative on exam yesterday
Primary team planning on discharge today - I d/w Dr. Alatorre - plan for EGD/colonoscopy as outpatient, will need to ensure pt stable from cardiac standpoint. I d/w daughter on phone as well.
Risks/alternatives/benefits of EGD/cscope reviewed with patient today as well as need to reverse DNR for procedure, she is agreeable
Patient should also follow up with hematology outpatient
OK to anticoagulate if needed
Appt made with Medina LANTIGUA in our office at 2:30 pm. Card given to patient.
GI will sign off pls call with questions.
Total Time Spent with Patient (in minutes): 35
Subjective
Subjective
Date of Service: October 26, 2023
Patient feels well no complaints
Objective
Data Reviewed
Laboratory Data:
Laboratory Results
10/26/23 03:50
10/26/23 03:50
Laboratory Results
Magnesium 2.0 mg/dl (1.6-2.3) 10/26/23 03:50
Total Bilirubin 0.5 mg/dl (0.2-1.3) 10/24/23 16:41
AST 26 U/L (14-36) 10/24/23 16:41
ALT 16 U/L (0-35) 10/24/23 16:41
Alkaline Phosphatase 71 U/L (38-126) 10/24/23 16:41
Vital Signs and I&O:
Vital Signs
Temp Pulse Resp BP Pulse Ox
97.7 F 76 20 142/93 97
10/26/23 07:36 10/26/23 11:00 10/26/23 07:36 10/26/23 07:38 10/26/23 07:36
I&O
10/25/23 10/26/23 10/27/23
06:59 06:59 06:59
Intake Total 320 / 320 1090 / 1090
Output Total 250 / 250
Balance 70 / 70 1090 / 1090
Physical Exam
Physical Exam
GI: Non Distended and Non Tender
== END 2023-10-26 12:18 | disposition home or self-care (01) | DRG 243 ==
LOC: IVU 21:24
PROVIDERS: Internal Medicine; Internal Medicine Cardiovascular Disease; Registered Nurse; ADMITTING PHYSICIAN Student in an Organized Health Care Education/Training Program; ATTENDING PHYSICIAN Internal Medicine; CONSULT PHYSICIAN Internal Medicine Cardiovascular Disease; EMERGENCY PHYSICIAN Emergency Medicine; FAMILY PHYSICIAN Internal Medicine; OTHER PHYSICIAN Specialist
PROC: 02HK3JZ Insertion of Pacemaker Lead into Right Ventricle, Percutaneous Approach (ICD-10-PCS; 2023-10-25)
PROC: 30233N1 Transfusion of Nonautologous Red Blood Cells into Peripheral Vein, Percutaneous Approach (ICD-10-PCS; 2023-10-25)
PROC: 0JH606Z Insertion of Pacemaker, Dual Chamber into Chest Subcutaneous Tissue and Fascia, Open Approach (ICD-10-PCS; 2023-10-25)
PROC: 02H63JZ Insertion of Pacemaker Lead into Right Atrium, Percutaneous Approach (ICD-10-PCS; 2023-10-25)
DX: R00.1 Bradycardia, unspecified (principal); E87.1 Hypo-osmolality and hyponatremia; Z66 Do not resuscitate; I95.9 Hypotension, unspecified; I10 Essential (primary) hypertension; D56.9 Thalassemia, unspecified; I48.0 Paroxysmal atrial fibrillation; E03.9 Hypothyroidism, unspecified; E78.00 Pure hypercholesterolemia, unspecified; Z79.01 Long term (current) use of anticoagulants; Z95.0 Presence of cardiac pacemaker
CPT/HCPCS: 33208; 71045; 80048; 80053; 82607; 82728; 82746; 83540; 83550; 83735; 83930; 83935; 84300; 84443; 84484; 85025; 85027; 86850; 86900; 86901; 86920; 93005; 96360; 96361; 99285; C1769; C1785; C1892; C1898; P9016

== ENCOUNTER → 2023-11-05 09:25 | Outpatient (REF) | payer MEDICARE, SELFPAY ==
[2023-11-05 11:52] LABS: Blood Urea Nitrogen 21 mg/dl (7-17); Calcium 9.4 mg/dl (8.4-10.2); Carbon Dioxide 28 mmol/L (22-30); Chloride 98 mmol/L (98-107); Glucose 93 mg/dl (70-99); Potassium 4.8 mmol/L (3.5-5.1); Sodium 134 mmol/L (135-145); eGFR > 60.00
[2023-11-05 12:13] LABS: % Basophils 0.6 % (0-2); % Eosinophils 4.7 % (0-6); % Immature Granulocytes 0.3 % (0-0.5); % Lymphocytes 23.9 % (20.5-51.1); % Monocytes 7.8 % (1.7-9.3); % Neutrophils 62.7 % (42.2-75.2); Absolute Eosinophils 0.2 10^3/uL (0-0.7); Absolute Lymphocytes 0.8 10^3/uL (1.2-3.4); Absolute Monocytes 0.3 10^3/uL (0.1-0.6); Hemoglobin 9.3 g/dL (12.0-16.0); Mean Corp Hgb Conc. 33.2 g/dL (33.0-37.0); Mean Corpuscular Hgb 29.1 pg (27.0-31.0); Mean Corpuscular Volume 87.5 fL (81.0-99.0); Mean Platelet Volume 9.8 fL (7.4-10.4); Nucleated Red Blood Cells % 0 %; Platelet Count 184 10^3/uL (130-400); Red Cell Dist. Width 18.6 % (11.5-14.5); White Blood Cell Count 3.2 10^3/uL (4.8-10.8)
== END ==
LOC: HWLAB 09:25
PROVIDERS: ATTENDING PHYSICIAN Internal Medicine; FAMILY PHYSICIAN Internal Medicine
DX: D64.9 Anemia, unspecified (principal)
CPT/HCPCS: 36415; 80048; 85025

== ENCOUNTER → 2023-12-11 06:35 | Day surgery (SDC) | payer MEDICARE, SELFPAY | LOC: GI 06:35 | PROVIDERS: ATTENDING PHYSICIAN Specialist; FAMILY PHYSICIAN Internal Medicine | DX: K64.8 Other hemorrhoids (principal); K63.89 Other specified diseases of intestine; K31.89 Other diseases of stomach and duodenum; D64.9 Anemia, unspecified | CPT/HCPCS: 45378; 43239; 88305; 88342 ==

== ENCOUNTER → 2023-12-20 12:33 | Outpatient (REF) | payer MEDICARE, SELFPAY ==
[2023-12-20 16:19] LABS: % Basophils 0.8 % (0-2); % Eosinophils 2.8 % (0-6); % Immature Granulocytes 0.3 % (0-0.5); % Lymphocytes 24.8 % (20.5-51.1); % Monocytes 9.9 % (1.7-9.3); % Neutrophils 61.4 % (42.2-75.2); Absolute Eosinophils 0.1 10^3/uL (0-0.7); Absolute Lymphocytes 0.9 10^3/uL (1.2-3.4); Absolute Monocytes 0.4 10^3/uL (0.1-0.6); Absolute Neutrophils 2.2 10^3/uL (1.4-6.5); Hemoglobin 9.1 g/dL (12.0-16.0); Mean Corp Hgb Conc. 32.5 g/dL (33.0-37.0); Mean Corpuscular Hgb 28.1 pg (27.0-31.0); Mean Corpuscular Volume 86.4 fL (81.0-99.0); Mean Platelet Volume 10.4 fL (7.4-10.4); Nucleated Red Blood Cells % 0 %; Platelet Count 273 10^3/uL (130-400); Red Blood Cell Count 3.24 10^6/uL (4.20-5.40); Red Cell Dist. Width 18.6 % (11.5-14.5); White Blood Cell Count 3.6 10^3/uL (4.8-10.8)
[2023-12-20 16:34] LABS: IgA 225 mg/dl (70-400)
[2023-12-20 16:39] LABS: Blood Urea Nitrogen 34 mg/dl (7-17); Calcium 9.8 mg/dl (8.4-10.2); Carbon Dioxide 24 mmol/L (22-30); Chloride 97 mmol/L (98-107); Glucose 103 mg/dl (70-99); Potassium 4.8 mmol/L (3.5-5.1); Sodium 129 mmol/L (135-145); eGFR > 60.00
[2023-12-20 16:58] LABS: TSH Reflex To Free T4 1.31 uIU/ml (0.47-4.68)
[2023-12-23 00:44] LABS: Endomysial IgA Antibody Titer <1:10 (<1:10)
[2023-12-26 15:54] LABS: tTG IgA Antibody 4.5 EU/ml (0-19); tTG IgG Antibody 4.6 EU/ml (0-19)
== END ==
LOC: HWLAB 12:33
PROVIDERS: ATTENDING PHYSICIAN Specialist; FAMILY PHYSICIAN Internal Medicine
DX: R53.83 Other fatigue (principal); R94.5 Abnormal results of liver function studies; I48.0 Paroxysmal atrial fibrillation; I10 Essential (primary) hypertension
CPT/HCPCS: 36415; 80048; 82784; 83516; 84443; 85025; 86231

== ENCOUNTER → 2023-12-25 12:01 | Outpatient (REF) | payer MEDICARE, SELFPAY ==
[2023-12-25 15:31] LABS: Blood Urea Nitrogen 19 mg/dl (7-17); Calcium 9.9 mg/dl (8.4-10.2); Carbon Dioxide 27 mmol/L (22-30); Chloride 95 mmol/L (98-107); Glucose 94 mg/dl (70-99); Potassium 5.3 mmol/L (3.5-5.1); Sodium 132 mmol/L (135-145); eGFR > 60.00
== END ==
LOC: HWLAB 12:01
PROVIDERS: ATTENDING PHYSICIAN Specialist; FAMILY PHYSICIAN Internal Medicine
DX: E87.1 Hypo-osmolality and hyponatremia (principal)
CPT/HCPCS: 36415; 80048

== ENCOUNTER → 2024-02-21 09:55 | Outpatient (REF) | payer MEDICARE, SELFPAY ==
[2024-02-21 12:45] LABS: % Basophils 0.8 % (0-2); % Eosinophils 3.8 % (0-6); % Immature Granulocytes 0.8 % (0-0.5); % Lymphocytes 20.1 % (20.5-51.1); % Neutrophils 66.5 % (42.2-75.2); Absolute Eosinophils 0.2 10^3/uL (0-0.7); Absolute Lymphocytes 0.8 10^3/uL (1.2-3.4); Absolute Monocytes 0.3 10^3/uL (0.1-0.6); Absolute Neutrophils 2.7 10^3/uL (1.4-6.5); Hematocrit 24.8 % (37.0-47.0); Hemoglobin 8.1 g/dL (12.0-16.0); Mean Corp Hgb Conc. 32.7 g/dL (33.0-37.0); Mean Corpuscular Hgb 27.6 pg (27.0-31.0); Mean Corpuscular Volume 84.6 fL (81.0-99.0); Mean Platelet Volume 9.5 fL (7.4-10.4); Nucleated Red Blood Cells % 0 %; Platelet Count 326 10^3/uL (130-400); Red Blood Cell Count 2.93 10^6/uL (4.20-5.40); Red Cell Dist. Width 21.3 % (11.5-14.5)
[2024-02-21 13:15] LABS: HDL Cholesterol 77 mg/dl; LDL Cholesterol, Calculated 113 mg/dl; Total Cholesterol 214 mg/dl (50-199); Triglyceride 124 mg/dl (10-149); Very Low Density Lipoprotein 24 mg/dl (0-30)
[2024-02-21 13:46] LABS: TSH Reflex To Free T4 1.12 uIU/ml (0.47-4.68)
== END ==
LOC: HWLAB 09:55
PROVIDERS: ATTENDING PHYSICIAN Internal Medicine
DX: I48.0 Paroxysmal atrial fibrillation (principal); I10 Essential (primary) hypertension
CPT/HCPCS: 36415; 80061; 84443; 85025

== ENCOUNTER → 2024-03-05 11:08 | Outpatient (REF) | payer MEDICARE, SELFPAY ==
[2024-03-05 16:18] LABS: % Basophils 0.9 % (0-2); % Eosinophils 4.5 % (0-6); % Immature Granulocytes 0.6 % (0-0.5); % Lymphocytes 22.1 % (20.5-51.1); % Monocytes 8.5 % (1.7-9.3); % Neutrophils 63.4 % (42.2-75.2); Absolute Eosinophils 0.2 10^3/uL (0-0.7); Absolute Lymphocytes 0.7 10^3/uL (1.2-3.4); Absolute Monocytes 0.3 10^3/uL (0.1-0.6); Absolute Neutrophils 2.1 10^3/uL (1.4-6.5); Hematocrit 24.8 % (37.0-47.0); Hemoglobin 8.2 g/dL (12.0-16.0); Mean Corp Hgb Conc. 33.1 g/dL (33.0-37.0); Mean Corpuscular Hgb 27.8 pg (27.0-31.0); Mean Corpuscular Volume 84.1 fL (81.0-99.0); Mean Platelet Volume 10.3 fL (7.4-10.4); Nucleated Red Blood Cells % 0 %; Platelet Count 343 10^3/uL (130-400); Red Blood Cell Count 2.95 10^6/uL (4.20-5.40); Red Cell Dist. Width 22.3 % (11.5-14.5); White Blood Cell Count 3.3 10^3/uL (4.8-10.8)
[2024-03-05 16:21] LABS: HDL Cholesterol 75 mg/dl; LDL Cholesterol, Calculated 133 mg/dl; Total Cholesterol 229 mg/dl (50-199); Triglyceride 105 mg/dl (10-149); Very Low Density Lipoprotein 21 mg/dl (0-30)
[2024-03-05 16:36] LABS: Anisocytosis 1+; Hypochromasia Slight; Normal RBC Morphology No
== END ==
LOC: HWLAB 11:08
PROVIDERS: ATTENDING PHYSICIAN Internal Medicine Hematology & Oncology; FAMILY PHYSICIAN Internal Medicine
DX: I48.0 Paroxysmal atrial fibrillation (principal); E78.5 Hyperlipidemia, unspecified
CPT/HCPCS: 36415; 80061; 85025

== ENCOUNTER → 2024-03-20 15:58 | Outpatient (REF) | payer MEDICARE, SELFPAY | LOC: WDC 15:58 | PROVIDERS: ATTENDING PHYSICIAN Internal Medicine | DX: Z12.31 Encounter for screening mammogram for malignant neoplasm of breast (principal) | CPT/HCPCS: 77063; 77067 ==

== ENCOUNTER 2024-03-23 13:09 | Emergency (ER) | payer MEDICARE, SELFPAY ==
[2024-03-23 13:15] VITALS: BP 147/104; BMI 24.6
[2024-03-23 13:30] VITALS: BP 145/87
[2024-03-23 13:32] LABS: % Basophils 0.8 % (0-2); % Eosinophils 2.5 % (0-6); % Immature Granulocytes 0.4 % (0-0.5); % Lymphocytes 21.6 % (20.5-51.1); % Monocytes 9.4 % (1.7-9.3); % Neutrophils 65.3 % (42.2-75.2); Absolute Eosinophils 0.1 10^3/uL (0-0.7); Absolute Lymphocytes 1.1 10^3/uL (1.2-3.4); Absolute Monocytes 0.5 10^3/uL (0.1-0.6); Absolute Neutrophils 3.2 10^3/uL (1.4-6.5); Hematocrit 26.2 % (37.0-47.0); Mean Corp Hgb Conc. 34.4 g/dL (33.0-37.0); Mean Corpuscular Hgb 28.4 pg (27.0-31.0); Mean Corpuscular Volume 82.6 fL (81.0-99.0); Mean Platelet Volume 9.1 fL (7.4-10.4); Nucleated Red Blood Cells % 0 %; Platelet Count 318 10^3/uL (130-400); Red Blood Cell Count 3.17 10^6/uL (4.20-5.40); Red Cell Dist. Width 22.1 % (11.5-14.5); White Blood Cell Count 4.9 10^3/uL (4.8-10.8)
[2024-03-23 13:55] LABS: ALT (SGPT) 16 U/L (0-35); AST (SGOT) 28 U/L (14-36); Albumin 4.6 g/dl (3.5-5.0); Alkaline Phosphatase 83 U/L (38-126); Blood Urea Nitrogen 27 mg/dl (7-17); Calcium 9.8 mg/dl (8.4-10.2); Carbon Dioxide 23 mmol/L (22-30); Chloride 100 mmol/L (98-107); Estimated Creatinine Clearance 62 ml/min; Glucose 102 mg/dl (70-99); Magnesium 2.2 mg/dl (1.6-2.3); Potassium 4.7 mmol/L (3.5-5.1); Sodium 133 mmol/L (135-145); Total Bilirubin 0.3 mg/dl (0.2-1.3); Total Protein 7.4 g/dl (6.3-8.2); eGFR > 60.00
[2024-03-23 14:00] VITALS: BP 118/60
[2024-03-23 14:23] LABS: TSH 1.26 uIU/ml (0.47-4.68)
--- NOTE | 2024-03-23 14:34 | ED.GENMED ---
History of Present Illness
General
Chief Complaint: Cardiac Symptoms
Source: patient and family
Time Seen by Provider: 03/23/24 13:20
History of Present Illness
History of Present Illness:
78-year-old female presents with palpitations. Patient states that since about 930 this morning she felt heart racing. She checked it at home and it was fast. Daughter is a physician and also checked her blood pressure was a little bit low.
Patient was feeling lightheaded so she presented to the emergency department. On my evaluation patient reports feeling better and it is noted that her heart rate is returned to normal. Patient denies any other symptoms including melena or
hematochezia. She is being worked up in follow-up for anemia.
Past History
Past History
ED Past Medical History: Arrthythmia (A fib, SVT), Cancer (Breast cancer), HTN, Hypothyroidism and Other (breast CA)
ED Past Surgical History: Cardiac (A-fib ablation 2016, December 2022, January 30, 2023) and Other (lumpectomy with mastectomy)
Social History
Tobacco: Non-smoker
Alcohol: None
Personal:
Living: with family
Employment: Retired
Family History
Family History: Other (Noncontributory)
Phy Exam
Physical Exam
Physical Exam:
CONSTITUTIONAL Patient alert and oriented to person, place and time. Well-appearing. Vital signs reviewed.
HEAD atraumatic, normocephalic.
EYES eyelids normal to inspection, Pupils equally round and reactive to light, Extraocular muscles intact, Conjunctiva normal, Sclera normal.
NECK normal range of motion, Trachea midline, no jugular venous distention.
RESPIRATORY CHEST No respiratory distress noted, Chest expansion equal, Bilateral breath sounds clear.
CARDIOVASCULAR regular rate and rhythm, Heart sounds normal.
ABDOMEN abdomen nontender, Bowel sounds normal. No distention.
BACK normal inspection, no obvious deformities
UPPER EXTREMITY range of motion normal, Motor strength normal, no cyanosis, no edema.
LOWER EXTREMITY range of motion normal, Motor strength normal, no cyanosis, no edema.
NEURO Speech normal, No focal motor deficits, [place]ra coma scale 15, Memory normal, Cranial Nerves intact to screening exam.
SKIN skin warm, dry, and normal in color.
PSYCHIATRIC patient oriented to person place and time, Normal affect.
Course
Orders/Labs/Results
Orders:
Orders
03/23/24 13:10
ECG [Electrocardiogram (*1)] Urgent
Reason for Study: Syncope
EKG- Treatment ONCE
03/23/24 13:24
EKG [Electrocardiogram (*1)] Urgent
Reason for Study: Palpitations
03/23/24 13:25
EKG- Treatment ONCE
03/23/24 13:26
Complete Blood Count/With Diff Urgent
Comprehensive Metabolic Panel Urgent
Magnesium Urgent
TSH Urgent
Abnormal Lab Results
03/23/24
13:26
RBC 3.17 L 10^6/uL
(4.20-5.40)
Hgb 9.0 L g/dL
(12.0-16.0)
Hct 26.2 L %
(37.0-47.0)
RDW 22.1 H %
(11.5-14.5)
Absolute Lymphs (auto) 1.1 L 10^3/uL
(1.2-3.4)
Monocytes % 9.4 H %
(1.7-9.3)
Sodium 133 L mmol/L
(135-145)
BUN 27 H mg/dl
(7-17)
Glucose 102 H mg/dl
(70-99)
03/23/24 13:26
03/23/24 13:26
Vital Signs
Initial and Last Documented VS:
Initial Vital Signs
Temp Pulse Resp BP Pulse Ox
98.8 F 141 20 147/104 99
03/23/24 13:15 03/23/24 13:15 03/23/24 13:15 03/23/24 13:15 03/23/24 13:15
Last Documented Vital Signs
Temp Pulse Resp BP Pulse Ox
98.8 F 85 20 145/87 97
03/23/24 13:15 03/23/24 13:45 03/23/24 13:45 03/23/24 13:30 03/23/24 13:45
MDM/Problems Addressed
MDM/Problems Addressed:
SVT
*Pulse Oximetry
Patient hypoxic: no
*EKG
Interpreted by ED Provider?: Yes
Interpretation: abnormal
Rate: tachycardiac
Rhythm: SVT
Ischemia: non-specific ST changes
*Regional Training Manager Interpretation
Rate: normal
Interpretation: normal
Rhythm: sinus
*Critical Care Note
Total Time (30-74mins, 75-104mins- exclusive of procedures): Not Applicable
Data Reviewed
Review of Other/Old Records Reveals: Records (Discharge summary reviewed from October 2023)
Source: patient and family
Prescriptions/Medications Considered But Not Given:
Considered IV adenosine but patient broke on her own
Patient Management
Discussion with other providers: Installation & Maintenance Executive (Case discussed with Dr. Simmons recommends increasing her metoprolol to 100 mg.)
Escalation/DeEscalation of care consider admission/obs:
Patient may need to have her other blood pressure medications tailored. Daughter will monitor closely discussed with Dr. Simmons
ED Attending Note
-
Portions of this chart may have been created with voice recognition software.� Occasional wrong word or��sound alike� substitutions may have occurred due to the inherent limitations of voice recognition software.
Discharge Plan
Departure
Patient Disposition: Home (Routine Discharge)
Date of Disposition: 03/23/24
Time of Disposition: 14:34
Patient with high blood pressure during this ER visit?: No
Discharge Problem:
SVT (supraventricular tachycardia)
Instructions: Supraventricular tachycardia (SVT)
Prescriptions:
No Action
Eliquis 5 MG tablet
5 mg PO BID
latanoprost 0.005 % Drops
1 drp LEFT EYE HS
alendronate [Fosamax] 70 mg Tablet
70 mg PO SORENSEN@0800
losartan 25 mg Tablet
25 mg PO DAILY
verapamil 120 mg Tablet Extended Release
120 mg PO DAILY
therapeutic multivitamin Tablet
1 tab PO DAILY PRN (Reason: supplement)
levothyroxine 88 mcg Tablet
88 mcg PO DAILY
ferrous sulfate [iron] 325 mg (65 mg iron) Tablet
325 mg PO DAILY
Calcium 600 + D(3)
1 tab PO DAILY
metoprolol succinate 50 MG tablet extended release 24 hr
50 mg PO DAILY
Referrals:
Jay Penaloza MD [Family Provider] -
Activity Restrictions/Additional Instructions:
Please see Dr. Simmons and follow-up as planned. Please increase your metoprolol to 100 mg daily as discussed. You may also need to hold some of your other blood pressure medications if your blood pressure drops too low. Please monitor at home
as you have been. Return immediately for lightheadedness, passing out episode, chest pain, shortness of breath or any other concerns.
Interventions
Interventions:
*Risk Screen - Suicide Last Done: 03/23/24 13:15
*General Assessment Last Done: 03/23/24 13:25
*Neglect/Abuse Screening Last Done: 03/23/24 13:15
ED- Fall Risk Assessment Last Done: 03/23/24 13:25
*ED COVID-19 Vaccine History Last Done: 03/23/24 13:25
ED- Pulmonary Assessment Last Done: 03/23/24 13:25
ED- Cardiac Assessment Last Done: 03/23/24 13:25
Discharge Date and Time
Print Language: [place]
== END 2024-03-23 15:00 | disposition home or self-care (01) ==
LOC: EMR 13:09
PROVIDERS: EMERGENCY PHYSICIAN Emergency Medicine; FAMILY PHYSICIAN Internal Medicine
DX: I47.10 Supraventricular tachycardia, unspecified (principal)
CPT/HCPCS: 99284; 80053; 83735; 84443; 85025; 93005

== ENCOUNTER → 2024-03-24 09:56 | Outpatient (REF) | payer MEDICARE, SELFPAY ==
[2024-03-24 12:56] LABS: % Immature Granulocytes 0.7 % (0-0.5); % Neutrophils 63.3 % (42.2-75.2); Absolute Eosinophils 0.1 10^3/uL (0-0.7); Absolute Lymphocytes 0.7 10^3/uL (1.2-3.4); Absolute Monocytes 0.2 10^3/uL (0.1-0.6); Absolute Neutrophils 1.9 10^3/uL (1.4-6.5); Hematocrit 25.4 % (37.0-47.0); Hemoglobin 8.5 g/dL (12.0-16.0); Mean Corp Hgb Conc. 33.5 g/dL (33.0-37.0); Mean Corpuscular Hgb 28.2 pg (27.0-31.0); Mean Corpuscular Volume 84.4 fL (81.0-99.0); Mean Platelet Volume 9.8 fL (7.4-10.4); Nucleated Red Blood Cells % 0 %; Platelet Count 328 10^3/uL (130-400); Red Blood Cell Count 3.01 10^6/uL (4.20-5.40); Red Cell Dist. Width 22.2 % (11.5-14.5); Reticulocyte Count 1.7 % (0.4-2.8)
[2024-03-24 13:07] LABS: Iron 142 ug/dl (37-170); LDH 281 U/L (120-246)
[2024-03-24 13:11] LABS: C-Reactive Protein < 5.00 mg/L (0.0-10.00)
[2024-03-24 13:16] LABS: Percent Saturation 39 % (20-50); Total Iron Binding Capacity 357 ug/dl (265-497)
[2024-03-24 13:30] LABS: Erythrocyte Sed Rate 80 mm/hour (0-20)
[2024-03-24 13:59] LABS: Anisocytosis 1+; Normal RBC Morphology No
[2024-03-24 14:02] LABS: Hypochromasia 1+; Microcytosis 1+
[2024-03-24 14:17] LABS: Folate > 20.0 ng/ml (2.76-20); Vitamin B12 960 pg/ml (239-931)
[2024-03-26 11:46] LABS: Erythropoietin (EPO) 60 mU/mL (4-27)
[2024-03-26 21:31] LABS: Haptoglobin 150 mg/dL (30-200)
[2024-03-26 23:45] LABS: Copper, Serum 144.2 ug/dL (80.0-155.0)
== END ==
LOC: HWLAB 09:56
PROVIDERS: ATTENDING PHYSICIAN Internal Medicine Hematology & Oncology; FAMILY PHYSICIAN Internal Medicine
DX: D56.0 Alpha thalassemia (principal); D63.8 Anemia in other chronic diseases classified elsewhere; D64.9 Anemia, unspecified; E03.9 Hypothyroidism, unspecified
CPT/HCPCS: 36415; 82525; 82607; 82668; 82728; 82746; 83010; 83540; 83550; 83615; 85025; 85045; 85652; 86140; 86880

== ENCOUNTER → 2024-04-24 14:45 | Outpatient (REF) | payer MEDICARE, SELFPAY | LOC: HWRCS 14:45 | PROVIDERS: ATTENDING PHYSICIAN Internal Medicine; FAMILY PHYSICIAN Internal Medicine | DX: I48.0 Paroxysmal atrial fibrillation (principal); I10 Essential (primary) hypertension | CPT/HCPCS: 93306 ==

== ENCOUNTER → 2024-05-09 08:48 | Outpatient (REF) | payer MEDICARE, SELFPAY | LOC: HWRAD 08:48 | PROVIDERS: ATTENDING PHYSICIAN Internal Medicine | DX: M89.9 Disorder of bone, unspecified (principal); Z78.0 Asymptomatic menopausal state | CPT/HCPCS: 77080 ==

== ENCOUNTER → 2024-11-18 11:05 | Outpatient (REF) | payer MEDICARE, SELFPAY ==
[2024-11-18 15:53] LABS: ALT (SGPT) 15 U/L (0-35); AST (SGOT) 26 U/L (14-36); Albumin 4.6 g/dl (3.5-5.0); Alkaline Phosphatase 78 U/L (38-126); Blood Urea Nitrogen 20 mg/dl (7-17); Calcium 9.9 mg/dl (8.4-10.2); Carbon Dioxide 25 mmol/L (22-30); Chloride 98 mmol/L (98-107); Glucose 111 mg/dl (70-99); Potassium 5.1 mmol/L (3.5-5.1); Sodium 133 mmol/L (135-145); Total Bilirubin 0.6 mg/dl (0.2-1.3); Total Protein 7.3 g/dl (6.3-8.2); eGFR > 60.00
== END ==
LOC: HWLAB 11:05
PROVIDERS: ATTENDING PHYSICIAN Internal Medicine; FAMILY PHYSICIAN Internal Medicine
DX: I10 Essential (primary) hypertension (principal)
CPT/HCPCS: 36415; 80053

== ENCOUNTER 2025-01-05 23:50 | Emergency (ER) | payer MEDICARE, SELFPAY ==
[2025-01-05 23:53] VITALS: BP 211/125
[2025-01-06] VITALS (7 sets, daily range): BP systolic 161–212; BP diastolic 87–117; BMI 28.0
[2025-01-06 00:43] LABS: ALT (SGPT) 18 U/L (0-35); AST (SGOT) 28 U/L (14-36); Albumin 4.6 g/dl (3.5-5.0); Alkaline Phosphatase 90 U/L (38-126); Blood Urea Nitrogen 25 mg/dl (7-17); Calcium 9.4 mg/dl (8.4-10.2); Carbon Dioxide 22 mmol/L (22-30); Chloride 102 mmol/L (98-107); Estimated Creatinine Clearance 60 ml/min; Glucose 102 mg/dl (70-99); Potassium 5.2 mmol/L (3.5-5.1); Sodium 135 mmol/L (135-145); Total Bilirubin 0.4 mg/dl (0.2-1.3); Total Protein 7.2 g/dl (6.3-8.2); eGFR > 60.00
--- NOTE | 2025-01-06 00:46 | ED.GENMED ---
History of Present Illness
General
Chief Complaint: Blood Pressure Problem
Source: patient and previous hospital records
Exam Limitations: none
Time Seen by Provider: 01/06/25 00:19
Nursing documentation reviewed up to this point in time: agreed with
History of Present Illness
History of Present Illness:
This is a 79-year-old woman with history of hypertension, A-fib chronically maintained on Eliquis, hyperlipidemia, hypothyroidism, anemia, remote history of breast cancer who presents with complaints of generalized headache that began around 10 PM
tonight. She noted that her blood pressure was elevated at 160/90 just prior to onset of the headache. She has remote history of migraine headaches in her younger years but has not suffered with headaches for quite some time.
She has history of hypertension and states her blood pressure is generally well-controlled with systolic in the 120s to the 130s. No recent change in medications.
Prior to tonight she has been feeling well, she denies nasal congestion or sore throat, no cough or fever. She denies vision difficulty. She admits to mild nausea but has had no vomiting. No weakness nor numbness nor dizziness.
She took an extra dose of metoprolol succinate 50 mg at 11 PM. Other than that she has not taken anything for headache.
Prior records reviewed.
Previous hospitalization October 2023 for symptomatic bradycardia and hypotension. Pacemaker placed as well as received 1 unit of packed red blood cells. 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
Colonoscopy October 2023 showing internal hemorrhoids as well as diffuse area of mild melanosis throughout the colon.
Endoscopy October 2023 showing mildly erythematous mucosa with stigmata of recent bleeding in the gastric body and the gastric antrum.
Past History
Past History
ED Past Medical History: Arrthythmia (A fib, SVT), Cancer (Breast cancer), HTN, Hypothyroidism, Other (Anemia) and Other (breast CA)
ED Past Surgical History: Cardiac (A-fib ablation 2016, December 2022, January 30, 2023; pacemaker October 2023) and Other (lumpectomy with mastectomy)
Social History
Tobacco: Non-smoker
Alcohol: None
Personal:
Living: with family
Employment: Retired
Family History
Family History: Other (Noncontributory)
Phy Exam
Physical Exam
Physical Exam:
GENERAL: 79-year-old woman appears her stated age, awake and alert, pleasant, appears in no acute distress.
EYE: pupils equal and reactive. Extraocular muscles intact anicteric
NECK: Supple, nontender, no meningismus, no significant adenopathy.
ENT: posterior pharynx is clear, oral mucosa is moist. No rhinorrhea.
CARDIAC: Regular rate and rhythm. no murmur.
LUNGS: Clear breath sounds bilaterally, no acute respiratory distress, no wheezes/rales/rhonchi
ABDOMEN: Soft, nondistended, without focal tenderness, normoactive BS.
NEUROLOGICAL: Alert and oriented x3, no focal neuro deficits. Gait is steady.
SKIN: Warm and dry, normal color, skin intact. No rash.
MUSCULOSKELETAL: No C/C/E. peripheral pulses are full and equal b/l. No palpable tenderness.
PSYCH: Normal and appropriate interaction.
Course
Orders/Labs/Results
Orders:
Orders
01/05/25 23:59
EKG [Electrocardiogram (*1)] Urgent
Reason for Study: Hypertension, Benign
EKG- Treatment ONCE
01/06/25 00:17
CMP [Comprehensive Metabolic Panel] Urgent
Complete Blood Count/With Diff Urgent
01/06/25 00:20
CT Head W/o Iv Contrast Urgent
Comment:
Reason For Exam: headache, HTN
01/06/25 00:57
0.9% Sodium Chloride 500 ml [Nss] 500 ml IV 250 mls/hr
Metoclopramide [Reglan] 10 mg IV NOW STA
01/06/25 02:26
Metoprolol [Lopressor] 5 mg IV NOW STA
Abnormal Lab Results
01/06/25
00:17
WBC 4.6 L 10^3/uL
(4.8-10.8)
RBC 3.36 L 10^6/uL
(4.20-5.40)
Hgb 8.6 L g/dL
(12.0-16.0)
Hct 26.5 L %
(37.0-47.0)
MCV 78.9 L fL
(81.0-99.0)
MCH 25.6 L pg
(27.0-31.0)
MCHC 32.5 L g/dL
(33.0-37.0)
RDW 29.1 H %
(11.5-14.5)
Plt Count 579 H 10^3/uL
(130-400)
Immature Gran % 0.9 H %
(0-0.5)
Potassium 5.2 H mmol/L
(3.5-5.1)
BUN 25 H mg/dl
(7-17)
Glucose 102 H mg/dl
(70-99)
01/06/25 00:17
01/06/25 00:17
Vital Signs
Initial and Last Documented VS:
Initial Vital Signs
Temp Pulse Resp BP Pulse Ox
97.9 F 85 18 211/125 98
01/05/25 23:53 01/05/25 23:53 01/05/25 23:53 01/05/25 23:53 01/05/25 23:53
Last Documented Vital Signs
Temp Pulse Resp BP Pulse Ox
97.9 F 70 17 175/95 99
01/05/25 23:53 01/06/25 02:31 01/06/25 03:00 01/06/25 02:53 01/06/25 02:15
MDM/Problems Addressed
Differential Diagnosis Includes:
Concern for migraine headache, tension headache, other consideration is acute CVA, intracranial bleeding.
No focal neurodeficits. NIH stroke scale of 0.
Initial blood pressure significantly elevated 211/125, has improved to 180/90.
Labs are pending.
Will check CT of the head.
Chronic conditions affecting care: HTN, Arrhythmia and Other (Anemia)
*Radiology
Radiology exam reviewed: radiology read reviewed
*Pulse Oximetry
Patient hypoxic: no
*EKG
Interpreted by ED Provider?: Yes
Interpretation: normal
Comparison EKG: no changes (Unchanged from previous March 2024)
Rate: normal
Rhythm: sinus
[place]: normal axis
Interval: first degree heart block
QRS Pattern: normal QRS
Ischemia: no ischemia
*Accounting Administrative Assistant Interpretation
Rate: normal
Interpretation: normal
Rhythm: sinus
*Critical Care Note
Total Time (30-74mins, 75-104mins- exclusive of procedures): Not Applicable
Update Note
Update Note:
02:30
Patient reports near complete relief of headache. Resting comfortably.
She continues to have no focal neurodeficits.
CT of the head is unremarkable.
Labs reveal moderate but stable anemia.
Mild hyperkalemia with potassium of 5.2. Similar sporadic elevated potassium levels noted previously. Normal creatinine of 0.8.
BP improving currently 179/93. Will give an IV dose of Lopressor and continue to observe.
Patient follows with marketing traffic manager regarding chronic anemia, maintained on 'an injection for anemia' that was recently changed 2 weeks ago to a different injectable medication. Although she cannot recall the name of this injection she was informed
that it may cause elevation of her blood pressure as well as may cause fatigue. This new erythropoietic medication may be cause for uptrend in her blood pressure.
Recommend prompt follow-up with Forms Analyst regarding ongoing anemia and prompt follow-up with retail center receptionist to recheck blood pressure.
ED Attending Note
-
Portions of this chart may have been created with voice recognition software.� Occasional wrong word or��sound alike� substitutions may have occurred due to the inherent limitations of voice recognition software.
Discharge Plan
Departure
Patient Disposition: Home (Routine Discharge)
Date of Disposition: 01/06/25
Time of Disposition: 03:03
Patient with high blood pressure during this ER visit?: No
Discharge Problem:
Acute headache, Accelerated essential hypertension
Instructions: High Blood Pressure (DC), Headaches in adults
Prescriptions:
No Action
Eliquis 5 MG tablet
5 mg PO BID
latanoprost 0.005 % Drops
1 drp LEFT EYE HS
alendronate [Fosamax] 70 mg Tablet
70 mg PO SORENSEN@0800
losartan 25 mg Tablet
25 mg PO DAILY
verapamil 120 mg Tablet Extended Release
120 mg PO DAILY
therapeutic multivitamin Tablet
1 tab PO DAILY PRN (Reason: supplement)
levothyroxine 88 mcg Tablet
88 mcg PO DAILY
ferrous sulfate [iron] 325 mg (65 mg iron) Tablet
325 mg PO DAILY
Calcium 600 + D(3)
1 tab PO DAILY
metoprolol succinate 50 MG tablet extended release 24 hr
50 mg PO DAILY
Referrals:
Hector Simmons MD [Active] - Call in 1-3 days for appt
Jay Penaloza MD [Family Provider] -
Interventions
Interventions:
*Risk Screen - Suicide Last Done: 01/05/25 23:53
*General Assessment Last Done: 01/05/25 23:53
*Neglect/Abuse Screening Last Done: 01/05/25 23:53
*ED- Fall Risk Assessment Last Done: 01/05/25 23:53
*ED COVID-19 Vaccine History Last Done: 01/05/25 23:53
*Nursing Disposition Last Done: 01/06/25 02:58
ED- Cardiac Assessment Last Done: 01/06/25 00:24
ED- Neurological Assessment Last Done: 01/06/25 00:24
ED- Pulmonary Assessment Last Done: 01/06/25 00:24
Discharge Date and Time
Print Language: CHILEAN
[2025-01-06 00:47] LABS: Hematocrit 26.5 % (37.0-47.0); Hemoglobin 8.6 g/dL (12.0-16.0); Mean Corp Hgb Conc. 32.5 g/dL (33.0-37.0); Mean Corpuscular Hgb 25.6 pg (27.0-31.0); Mean Corpuscular Volume 78.9 fL (81.0-99.0); Mean Platelet Volume 9.6 fL (7.4-10.4); Platelet Count 579 10^3/uL (130-400); Red Blood Cell Count 3.36 10^6/uL (4.20-5.40); Red Cell Dist. Width 29.1 % (11.5-14.5); White Blood Cell Count 4.6 10^3/uL (4.8-10.8)
[2025-01-06] MEDS: REGLAN 10 MG IV (01:02)
[2025-01-06] MEDS: NSS 500 IV (01:02)
[2025-01-06 01:24] LABS: % Basophils 1.3 % (0-2); % Eosinophils 4.1 % (0-6); % Immature Granulocytes 0.9 % (0-0.5); % Lymphocytes 27.9 % (20.5-51.1); % Monocytes 7.2 % (1.7-9.3); % Neutrophils 58.6 % (42.2-75.2); Absolute Basophils 0.1 10^3/uL (0-0.2); Absolute Eosinophils 0.2 10^3/uL (0-0.7); Absolute Lymphocytes 1.3 10^3/uL (1.2-3.4); Absolute Monocytes 0.3 10^3/uL (0.1-0.6); Absolute Neutrophils 2.7 10^3/uL (1.4-6.5); Nucleated Red Blood Cells % 0 %
[2025-01-06] MEDS: LOPRESSOR 5 MG IV (02:29)
== END 2025-01-06 03:06 | disposition home or self-care (01) ==
LOC: EMR 23:50
PROVIDERS: EMERGENCY PHYSICIAN Emergency Medicine; FAMILY PHYSICIAN Internal Medicine
DX: R51.9 Headache, unspecified (principal); R11.0 Nausea; I10 Essential (primary) hypertension; D64.9 Anemia, unspecified; E87.5 Hyperkalemia; I44.0 Atrioventricular block, first degree; I48.91 Unspecified atrial fibrillation; E03.9 Hypothyroidism, unspecified; E78.5 Hyperlipidemia, unspecified; H40.9 Unspecified glaucoma; B02.9 Zoster without complications; Z95.0 Presence of cardiac pacemaker; Z79.01 Long term (current) use of anticoagulants; Z85.3 Personal history of malignant neoplasm of breast; Z92.21 Personal history of antineoplastic chemotherapy; Z92.3 Personal history of irradiation; Z90.12 Acquired absence of left breast and nipple
CPT/HCPCS: 99284; 96374; 96375; 96361 ×2; 70450; 80053; 85025; 93005

== ENCOUNTER → 2025-03-23 14:11 | Outpatient (REF) | payer MEDICARE, SELFPAY | LOC: WDC 14:11 | PROVIDERS: ATTENDING PHYSICIAN Internal Medicine | DX: Z12.31 Encounter for screening mammogram for malignant neoplasm of breast (principal) | CPT/HCPCS: 77063; 77067 ==

== ENCOUNTER → 2025-04-21 11:33 | Outpatient (REF) | payer MEDICARE, SELFPAY ==
[2025-04-21 14:41] LABS: ALT (SGPT) 19 U/L (0-35); AST (SGOT) 28 U/L (14-36); Albumin 4.9 g/dl (3.5-5.0); Alkaline Phosphatase 74 U/L (38-126); Blood Urea Nitrogen 27 mg/dl (7-17); Calcium 9.7 mg/dl (8.4-10.2); Carbon Dioxide 25 mmol/L (22-30); Chloride 102 mmol/L (98-107); Glucose 81 mg/dl (70-99); Potassium 5.9 mmol/L (3.5-5.1); Sodium 135 mmol/L (135-145); Total Protein 7.9 g/dl (6.3-8.2); eGFR > 60.00
== END ==
LOC: REG 11:33
PROVIDERS: ATTENDING PHYSICIAN Internal Medicine Cardiovascular Disease; FAMILY PHYSICIAN Internal Medicine
DX: I48.0 Paroxysmal atrial fibrillation (principal); I10 Essential (primary) hypertension; E78.5 Hyperlipidemia, unspecified; I49.5 Sick sinus syndrome; Z95.0 Presence of cardiac pacemaker
CPT/HCPCS: 36415; 80053

== ENCOUNTER → 2025-04-28 09:30 | Outpatient (REF) | payer MEDICARE, SELFPAY | LOC: RAD 09:30 | PROVIDERS: ATTENDING PHYSICIAN Internal Medicine Cardiovascular Disease; FAMILY PHYSICIAN Internal Medicine; REFERRING PHYSICIAN Internal Medicine | DX: D62 Acute posthemorrhagic anemia (principal) | CPT/HCPCS: 75572; Q9967 ==

== ENCOUNTER 2025-05-27 19:07 | Emergency (ER) | payer MEDICARE, SELFPAY ==
[2025-05-27 19:11] VITALS: BP 166/94
[2025-05-27 19:50] LABS: ALT (SGPT) 22 U/L (0-35); AST (SGOT) 30 U/L (14-36); Albumin 5.0 g/dl (3.5-5.0); Alkaline Phosphatase 72 U/L (38-126); Blood Urea Nitrogen 34 mg/dl (7-17); Calcium 9.5 mg/dl (8.4-10.2); Carbon Dioxide 22 mmol/L (22-30); Chloride 103 mmol/L (98-107); Glucose 83 mg/dl (70-99); Potassium 5.3 mmol/L (3.5-5.1); Sodium 134 mmol/L (135-145); Total Protein 8.3 g/dl (6.3-8.2); eGFR 57.66
--- NOTE | 2025-05-27 21:46 | ED.GENMED ---
History of Present Illness
General
Chief Complaint: Abnormal Lab Value
Source: patient
Time Seen by Provider: 05/27/25 21:42
History of Present Illness
History of Present Illness:
80-year-old female presenting to the emergency department at the request of her primary provider after she had outpatient labs done here earlier today which showed a potassium level of 0.3, patient was getting the labs as part of her outpatient
testing for a Watchman device that is scheduled to be placed this coming Sunday. Patient is without any concerns at this time.
Past History
Past History
ED Past Medical History: Arrthythmia (A fib, SVT), Cancer (Breast cancer), HTN, Hypothyroidism, Other (Anemia) and Other (breast CA)
ED Past Surgical History: Cardiac (A-fib ablation 2016, December 2022, January 30, 2023; pacemaker October 2023) and Other (lumpectomy with mastectomy)
Social History
Tobacco: Non-smoker
Alcohol: None
Drug: None
Personal:
Living: with family
Employment: Retired
Family History
Family History: Other (Noncontributory)
Review of Systems
Review of Systems
All Other Systems: ROS reviewed and negative except as documented in HPI and ROS
Phy Exam
Physical Exam
Physical Exam:
GENERAL: Alert , in no apparent distress
EYE: conjunctiva clear
Head: Normocephalic atraumatic
NECK: Supple,
ENT: mmm.
LUNGS: no acute respiratory distress
NEUROLOGICAL: Alert and oriented
SKIN: Warm and dry, skin intact.
MUSCULOSKELETAL: well perfused.
PSYCH: Normal and appropriate interaction.
Scores
Heart Failure Risk
Heart Failure Risk Score: Not Applicable
Heart Score for Chest Pain Patients
STEMI patient?: Not applicable
Withdrawal Assessment of Alcohol
Withdrawal Assessment Completed?: Not applicable
Course
Orders/Labs/Results
Orders:
Orders
05/27/25 19:18
Comprehensive Metabolic Panel Urgent
Abnormal Lab Results
05/27/25
19:18
Sodium 134 L mmol/L
(135-145)
Potassium 5.3 H mmol/L
(3.5-5.1)
BUN 34 H mg/dl
(7-17)
Total Protein 8.3 H g/dl
(6.3-8.2)
05/27/25 19:11
05/27/25 19:18
Vital Signs
Initial and Last Documented VS:
Initial Vital Signs
Temp Pulse Resp BP Pulse Ox
98.2 F 79 16 166/94 100
05/27/25 19:11 05/27/25 19:11 05/27/25 19:11 05/27/25 19:11 05/27/25 19:11
Last Documented Vital Signs
Temp Pulse Resp BP Pulse Ox
98.2 F 79 16 166/94 100
05/27/25 19:11 05/27/25 19:11 05/27/25 19:11 05/27/25 19:11 05/27/25 19:11
MDM/Problems Addressed
Differential Diagnosis Includes:
Lab Error
KIALEY/CKD
Medication Interaction
Electrolyte Imbalance
MDM/Problems Addressed:
80-year-old female presenting the ER after having outpatient labs done showing she had a potassium of 6.3. Patient asymptomatic. Repeat labs done here show a potassium of 5.3. Based off record review patient appears to have a chronically mildly
elevated potassium level. She is asymptomatic and in no acute distress. Patient refusing any further workup and would like to be discharged home. Advised follow-up with family doctor for close monitoring of her potassium. She will follow-up for
her Watchman procedure this coming Sunday.
*Pulse Oximetry
SaO2: 100
Oxygen Mode of Delivery: Room air
Patient hypoxic: no
*Critical Care Note
Total Time (30-74mins, 75-104mins- exclusive of procedures): Not Applicable
Data Reviewed
Review of Other/Old Records Reveals: Labs and Records
ED Attending Note
-
Portions of this chart may have been created with voice recognition software.� Occasional wrong word or��sound alike� substitutions may have occurred due to the inherent limitations of voice recognition software.
Discharge Plan
Departure
Patient Disposition: Home (Routine Discharge)
Date of Disposition: 05/27/25
Time of Disposition: 21:46
Patient with high blood pressure during this ER visit?: Yes
Discharge Problem:
Hyperkalemia
Instructions: Hyperkalemia (DC)
Prescriptions:
No Action
Eliquis 5 MG tablet
5 mg PO BID
latanoprost 0.005 % Drops
1 drp LEFT EYE HS
alendronate [Fosamax] 70 mg Tablet
70 mg PO SORENSEN@0800
losartan 25 mg Tablet
25 mg PO DAILY
verapamil 120 mg Tablet Extended Release
120 mg PO DAILY
therapeutic multivitamin Tablet
1 tab PO DAILY PRN (Reason: supplement)
levothyroxine 88 mcg Tablet
88 mcg PO DAILY
ferrous sulfate [iron] 325 mg (65 mg iron) Tablet
325 mg PO DAILY
Calcium 600 + D(3)
1 tab PO DAILY
metoprolol succinate 50 MG tablet extended release 24 hr
50 mg PO DAILY
Referrals:
UNKNOWN - PT DOES,NOT KNOW [Family Provider]
Discharge Date and Time
Print Language: ARMENIAN
== END 2025-05-27 21:50 | disposition home or self-care (01) ==
LOC: EMR 19:07
PROVIDERS: Emergency Medicine; EMERGENCY PHYSICIAN Emergency Medicine
DX: E87.5 Hyperkalemia (principal); E03.9 Hypothyroidism, unspecified; I10 Essential (primary) hypertension; I48.91 Unspecified atrial fibrillation; Z85.3 Personal history of malignant neoplasm of breast; Z90.10 Acquired absence of unspecified breast and nipple; Z95.0 Presence of cardiac pacemaker
CPT/HCPCS: 99283; 80053

== ENCOUNTER → 2025-05-29 09:01 | Outpatient (REF) | payer MEDICARE, SELFPAY | LOC: HWRCS 09:01 | PROVIDERS: ATTENDING PHYSICIAN Internal Medicine; FAMILY PHYSICIAN Internal Medicine | DX: Z95.0 Presence of cardiac pacemaker (principal); I48.0 Paroxysmal atrial fibrillation | CPT/HCPCS: 93306 ==

== ENCOUNTER 2025-06-01 06:02 | Inpatient (IN) | payer MEDICARE, SELFPAY ==
[2025-05-27 12:29] VITALS: BMI 27.4
[2025-05-27 13:40] LABS: Hematocrit 29.4 % (37.0-47.0); Hemoglobin 9.1 g/dL (12.0-16.0); Mean Corp Hgb Conc. 31.0 g/dL (33.0-37.0); Mean Corpuscular Volume 75.4 fL (81.0-99.0); Platelet Count 884 10^3/uL (130-400); Red Cell Dist. Width 26.9 % (11.5-14.5)
[2025-05-27 13:43] LABS: INR 1.37; PT 17.4 Sec (11.4-14.6)
[2025-05-27 14:04] LABS: Nucleated Red Blood Cells % 0.3 %
[2025-05-27 14:10] LABS: ALT (SGPT) 20 U/L (0-35); AST (SGOT) 25 U/L (14-36); Albumin 4.9 g/dl (3.5-5.0); Alkaline Phosphatase 78 U/L (38-126); Blood Urea Nitrogen 33 mg/dl (7-17); Calcium 9.7 mg/dl (8.4-10.2); Carbon Dioxide 24 mmol/L (22-30); Chloride 102 mmol/L (98-107); Estimated Creatinine Clearance 49 ml/min; Glucose 76 mg/dl (70-99); Potassium 6.3 mmol/L (3.5-5.1); Sodium 135 mmol/L (135-145); Total Protein 7.9 g/dl (6.3-8.2); eGFR > 60.00
[2025-06-01] VITALS (12 sets, daily range): BP systolic 143–186; BP diastolic 84–110
[2025-06-01 07:18] LABS: Blood Urea Nitrogen 22 mg/dl (7-17); Calcium 9.5 mg/dl (8.4-10.2); Carbon Dioxide 23 mmol/L (22-30); Chloride 105 mmol/L (98-107); Estimated Creatinine Clearance 49 ml/min; Glucose 90 mg/dl (70-99); Potassium 5.3 mmol/L (3.5-5.1); Sodium 135 mmol/L (135-145); eGFR > 60.00
--- NOTE | 2025-06-01 10:04 | WATCHMAN.MD ---
Watchman Implant
-
Watchman KATT occlusion device implantation:
Ms. Garber is a 80 yrs old woman with recurrent bleeding and advised to stop anticoagulation therapy is here for Watchman implantation.
Date of Procedure:
06/01/25
Indications:
Recurrent bleeding with anticoagulation therapy for stroke prevention
Pre-Operative Diagnosis:
Atrial fibrillation with recurrent bleeding
Post-Operative Diagnosis:
Atrial fibrillation with recurrent bleeding
Procedure Performed:
Left atrial appendage occlusion with Watchman implantation (27 mm Watchman FLX Pro left atrial appendage closure device)
Performing Physicians:
LEONA: Berlin Ramirez M.D.
Transseptal fruit thinner machine operator: Arminda Pritchard M.D.
Implanter: Sydnie Martínez M.D.
Anesthesia:
See anesthesia records
Detailed Description of the Procedure:
Written informed consent was obtained from the patient after a full explanation of the risks and benefits of the procedure including the risks of sedation and anesthesia.
The patient was brought to the electrophysiology laboratory in stable condition in fasting state. Continuous electrocardiographic and hemodynamic monitoring was initiated.
The initial rhythm was atrial paced.
The procedure site was meticulously prepared with surgical scrub and allowed to dry with no pooling. Sterile draping was applied to cover the procedure site. The image intensifier was draped with sterile bag and positioned over the patient. After
infusion of local anesthetic, vascular access was obtained under ultrasound guidance and sheaths were placed over guide wire as detailed below.
Sheath and Catheter Placement:
Sheaths:
��������������� 9Fr with ICE
��������������� Watchman delivery sheath.
Catheters:
��������������� AccuNav ICE
��������������� Watchman catheter
Intra cardiac ECHO (ICE):
Using AccuNav ICE catheter, ECHO of the cardiac chambers were done that provided the anatomy and a baseline ECHO study was performed. There was no pericardial effusion.
During the procedure, ICE and LEONA was used for monitoring of complications, guidance of trans-septal puncture, monitor the catheter position and tracking watchman implantation and level of compression.
No change in the pericardial space noted throughout the procedure.
Trans-septal Puncture:
Heparin was initiated and infused to maintain appropriate ACT.
A VersaCross RF pigtail guidewire was advanced through the 8-Kiswahili sheath in the right femoral vein into the superior vena cava under fluoroscopic, ICE and LEONA guidance. The 8Fr was upgraded the Watchman sheath and was advanced into the superior
vena cava over the guide wire. A transseptal VersaCross RF pigtail via Faradrive connect system was utilized to perform the trans-septal puncture. The apparatus was withdrawn until it was in contact with the fossa ovalis. The position was adjusted
based on fluoroscopy and ultrasound images from ICE. Under fluoroscopic, hemodynamic and ICE/LEONA ultrasound guidance, left atrium was cannulated by applying the radiofrequency energy. The right atrial and left atrial pressure was monitored. A guide
wire was placed and was advanced into the left superior pulmonary vein. Both the sheath and the dilator was advanced into the left atrium. The dilator was withdrawn. Blood was aspirated from the sheath and arterial blood confirmed. The sheath was
flushed. Saline injection noted into the left atrium on LEONA. The LA pressure was recorded. The saline injection was noted in the LA on the LEONA and ICE. A curved pig tail was advanced over the guide wire into the left atrium and the wire was removed.
Left atrial appendage atriography:
The pigtail was advanced into the KATT and was confirmed on fluoroscopy and LEONA. The contrast was injected and the KATT shape was recorded in [place] /Caudal view (10/25 degrees). The size of the KATT was again checked and confirmed reviewing the LEONA and
the fluoroscopy along with previously obtained CT scan images.
Watchman Deployment:
The Watchman delivery sheath was advanced into the KATT over the pigtail till the right marker was at the location of the orifice line marked on the screen. The pigtail was removed and the Watchman delivery system was advanced through the sheath into
the KATT till it was aligned with the outer sheath marker inside the KATT. The watchman sheath was clicked with the outer sheath. Once acceptable location achieved, the outer sheath was pulled back keeping the device steady at the KATT location till a
ball of the device was formed under fluoroscopic guidance. The whole system was advanced further into the KATT till adequate depth is achieved into the KATT.� The KATT occluder was deployed and expanded adequately anchoring to the KATT. The device was
kept anchored with stable pressure to that location for 10 seconds.
The watchman had a large shoulder and was recaptured and deployed again at a different angle as noted abive with less of a shoulder.
The LEONA image confirmed adequate expansion. The tug test was done that showed the device is anchored well and is not able to come out. The compression was 19% and 21% on the two sides. There was no significant leak noted on the Doppler via LEONA.
The device was deployed by unscrewing the Watchman device and releasing from the connecting wire. The wire was pulled back into the sheath and the sheath was pulled out of the LA.
Implanted device:
WATCHMAN FLX Pro � 27mm
Procedure End
LEONA study was done again that showed no epicardial accumulation that was unchanged from earlier. A repeated images showed no change in the pericardial space. No complications noted.
Following the completion of the deployment, catheters were removed. Protamine 40 mg was given at the end of the procedure and ACT was checked repeatedly. The sheath was removed and hemostasis achieved with Figure of 8 suture and manual compression
after acceptable ACT is achieved.
Left atrial Pressure:
Mean LA pressure was 14mmHg
Estimated Blood loss:
10 cc
Specimens Removed:
None.
Implants / Devices:
None
Urine output:
None
Packs / Drains/ Tubes:
None
Instrument / Sponge Count Correct:
Yes
Complications of the Procedure:
None
Condition of Patient at Time of Transfer:
Hemodynamically stable with no neurological or vascular compromise.
Summary:
Successful implantation of the left atrial occlusion device (WATCHMAN FLX Pro� 27mm)
Post procedure Plan for anticoagulation:
Continue Eliquis 5 mg BID for 3 month.
In 3 months, will plan to discontinue Eliquis and start Plavix and ASA for 6 months.
Following 6 months of DAPT, Plavix will be discontinued and continue ASA 81 mg indefinitely.
--- NOTE | 2025-06-01 10:16 | WATCHMAN.MD ---
Watchman Implant
-
ELECTROPHYSIOLOGY/INTERVENTIONAL PROCEDURE REPORT
Date of Procedure: June 01, 2024
Assisting Physician: Sydnie Martínez
PROCEDURES:
1. Left atrial appendage occlusion device using 27 mm WATCHMAN FLX device
2. Intracardiac echocardiography
3. Ultrasound-guided right common femoral venous access
INDICATION: High [id number] warranting fpc full anticoagulation but inability to do this given his bleeding risk/bleeding complication.
ACCESS: Right common femoral vein, 16Fr sheath and 9Fr. sheaths, under US guidance using micropunture kit.
Ultrasound was utilized for vascular access. The right femoral vein was visualized under ultrasound, and the vessels was patent. An image was stored permanently in the patient's medical record. Under direct ultrasound guidance, an 8 Ukrainian
sheaths was inserted into the right common femoral vein, using a micropuncture kit through a modified Seldinger technique.
HEMODYNAMICS : (mmHg)
LA Pressure: 14
PROCEDURE REPORT:
After informed consent and patient safety 'Timeout' the patient was intubated and sedated by the anesthesiology service. Under ultrasound guidance, the right femoral vein was accessed by Dr. Sydnie Martínez twice for transseptal puncture and
intracardiac ultrasound, respectively. Concomitant transesophageal echocardiogram was performed by Dr. marah Ramirez
Baseline intracardiac ultrasound demonstrated no pericardial effusion and baseline LEONA images revealed a trace pericardial effusion.
After ruling out a left atrial appendage thrombus, the patient was heparinized for an ACT between 350-400 seconds and under LEONA and intracardiac ultrasound guidance transseptal puncture was performed by Dr. Arminda Pritchard using the [place] VersaCross
trans-septal system in a mid position on the inferior-superior axis and a mid position on the anterior-posterior axis. Left atrial pressure was 14 millimeters mercury.
Once transseptal puncture was performed over the Colbert Versacross pigtail 0.035 wire, which was parked in the body of left atrial appendage, the watchman access double curve sheath was advanced over this into the left atrium. A 5 Ukrainian pigtail
catheter was placed into the left atrial appendage and an appendage gram was performed using intravenous contrast dye demonstrating an anatomy that was suitable likely for a 27 mm WATCHMAN FLX device.
After appropriately prepping the device, Dr. Sydnie Martínez successfully deployed a 27 mm WATCHMAN FLX device. Device showed excellent positioning with no leaks post device deployment. 19 to 21 % compression was noted in the device after deployment.
A 'tug-test' was performed demonstrating stability of the device. Given PASS criteria were met, the device was then released successfully by Dr. Sydnie Martínez
Post procedure, LEONA imaging demonstrated no new or worse pericardial effusion. Sheaths and catheters were removed from the left atrium and heparin was reversed using protamine. Catheters removed from the femoral veins with [id number] suture
applied. The patient tolerated the procedure well.
Closure Device: Figure of 8 suture
CONCLUSIONS
1. Successful deployment of 27 mm WATCHMAN FLX device under LEONA and ICE guidance.
RECOMMENDATIONS
1. Plan for Eliquis 5 mg twice daily for the next 3 months.
2. 3-month LEONA post procedure to assess stability of device and rule out any jesse-device leaks. If no issues noted on the 3-month LEONA post watchman placement such as a greater than 5 mm leak, plan would be to stop anticoagulation at that point and
continue daily baby aspirin lifelong.
3. Figure of 8 suture removal prior to discharge.
Arminda Pritchard MD, [facility], [facility]
[2025-06-01 10:58] LABS: ACT-LR - POC 337 Seconds (116-155)
[2025-06-01 10:58] LABS: ACT-LR - POC 252 Seconds (116-155)
[2025-06-01] MEDS: TYLENOL 650 MG PO (13:22)
--- NOTE | 2025-06-01 14:44 | W.PN.UPDATE ---
Update Note
Progress Note Update
Pt seen post Watchman device implant. Right groin site without ht/bleeding, non tender. OOB ambulating, urinating without difficulty. Post EKG NSR w/1st deg AVB as before, no acute changes. Resume Eliquis tonight at usual time, continue other meds
as before. Followup LEONA arranged. Home today if groin site/tele remain stable.
--- NOTE | 2025-06-02 07:33 | W.DS.TRANS ---
DC Summary - Dynamiter
-
Discharge Instructions:
Discharge Diagnosis/Procedures AFib, s/p watchman device implant
Diet Low Cholesterol
Driving Restrictions No driving for 24 hours
Others Tests Follow up LEONA has been scheduled for your at
[facility] on 09/01/2025.
You will receive a call the day before with
arrival time.
Instructions:
Stand-Alone Forms: DC Instructions- Cath/EP Lab
Changes to Home Medications: No
Discharge Medications:
DC Medications w/original date entered in [employer]
apixaban 5 mg tablet (Eliquis) 5 mg PO BID Blood Clot Prevention/Tx 05/25/17
alendronate 70 mg tablet (Fosamax) 70 mg PO SORENSEN@0800 osteoporosis 12/28/22
latanoprost 0.005 % eye drops 1 drp LEFT EYE HS Eye Condition 12/28/22
verapamil 120 mg tablet,extended release 240 mg PO DAILY Arrhythmia 01/30/23
levothyroxine 88 mcg tablet 88 mcg PO DAILY Thyroid 10/24/23
metoprolol succinate 50 mg tablet,extended release 24 hr 50 mg PO DAILY Blood Pressure 10/25/23
Hydroxy Urea 65 mg PO DAILY 06/01/25
cholecalciferol (vitamin D3) 50 mcg (2,000 unit) tablet (Vitamin D3) 50 mcg PO DAILY 06/01/25
cyanocobalamin (vitamin B-12) 1,000 mcg tablet 1,000 mcg PO DAILY 06/01/25
ferrous sulfate 324 mg (65 mg iron) tablet,delayed release 324 mg PO DAILY 06/01/25
magnesium oxide 400 mg PO DAILY 06/01/25
Home Medication Changes
Pending Results: No
== END 2025-06-01 15:00 | disposition home or self-care (01) | DRG 274 ==
LOC: CATH-IN 06:02
PROVIDERS: Nurse Practitioner Adult Health; ADMITTING PHYSICIAN Internal Medicine Cardiovascular Disease; FAMILY PHYSICIAN Internal Medicine
PROC: B246ZZ4 Ultrasonography of Right and Left Heart, Transesophageal (ICD-10-PCS; 2025-06-01)
PROC: 02L73DK Occlusion of Left Atrial Appendage with Intraluminal Device, Percutaneous Approach (ICD-10-PCS; 2025-06-01)
PROC: B24CZZ4 Ultrasonography of Pericardium, Transesophageal (ICD-10-PCS; 2025-06-01)
DX: I48.91 Unspecified atrial fibrillation (principal); E78.00 Pure hypercholesterolemia, unspecified; I10 Essential (primary) hypertension; E03.9 Hypothyroidism, unspecified; D64.9 Anemia, unspecified; Z95.0 Presence of cardiac pacemaker; Z79.01 Long term (current) use of anticoagulants; Z79.82 Long term (current) use of aspirin; Z79.02 Long term (current) use of antithrombotics/antiplatelets; Z85.3 Personal history of malignant neoplasm of breast; Z79.890 Hormone replacement therapy
CPT/HCPCS: 36415; 80048; 80053; 85025; 85347; 85610; 86850; 86900; 86901; 93005; 93306; 93355; C1759; C1769; C1892; C1894; Q9967

== ENCOUNTER 2025-06-03 12:47 | Emergency (ER) | payer MEDICARE, SELFPAY ==
[2025-06-03 12:47] VITALS: BMI 28.1
[2025-06-03 12:52] VITALS: BP 152/90
[2025-06-03 13:34] LABS: ALT (SGPT) 21 U/L (0-35); AST (SGOT) 29 U/L (14-36); Albumin 5.1 g/dl (3.5-5.0); Alkaline Phosphatase 95 U/L (38-126); Blood Urea Nitrogen 14 mg/dl (7-17); Calcium 10.0 mg/dl (8.4-10.2); Carbon Dioxide 25 mmol/L (22-30); Chloride 100 mmol/L (98-107); Glucose 114 mg/dl (70-99); Potassium 5.3 mmol/L (3.5-5.1); Sodium 133 mmol/L (135-145); Total Protein 8.4 g/dl (6.3-8.2); eGFR > 60.00
[2025-06-03 14:21] LABS: Hematocrit 30.3 % (37.0-47.0); Hemoglobin 9.8 g/dL (12.0-16.0); Mean Corp Hgb Conc. 32.3 g/dL (33.0-37.0); Mean Corpuscular Volume 74.4 fL (81.0-99.0); Platelet Count 1117 10^3/uL (130-400); Red Cell Dist. Width 26.8 % (11.5-14.5)
[2025-06-03 14:38] LABS: Anisocytosis 2+; Hypochromasia 1+; Microcytosis 2+; Ovalocytes 1+; Schistocytes 1+; Stomatocytes 1+; Target Cells 1+
[2025-06-03 14:39] LABS: Acanthocytes 1+; Normal RBC Morphology No
[2025-06-03 14:40] LABS: Nucleated Red Blood Cells % 0.2 %
[2025-06-03 15:18] VITALS: BP 154/85
[2025-06-03] MEDS: TYLENOL 650 MG PO (15:56)
--- NOTE | 2025-06-03 15:56 | ED.GENMED ---
History of Present Illness
General
Chief Complaint: Headache
Source: patient
Exam Limitations: none
Time Seen by Provider: 06/03/25 15:06
Nursing documentation reviewed up to this point in time: agreed with
History of Present Illness
History of Present Illness:
Patient is a 80-year-old female with history HTN, HLD, afib on eliquis currently 2 days following watchman placement procedure, who presents to the emergency department for evaluation of headache. She reports having a headache since the procedure
which was performed [address] Martínez. She describes an aching headache throughout her entire head which has been relatively constant. She denies any clear positional component to pain. She reports associated nausea and photophobia. She
denies any fever, dizziness, ataxia, diplopia. No ocular pain. She has not had any vomiting. No numbness/tingling or weakness in lower extremities. She is ambulating without difficulty.
She states that she has been taking Tylenol over the past 2 days which only relieves the pain temporarily. Headache was worse yesterday however is still persistent today. She contacted her credit and loan collections supervisor, Dr. Simmons who recommended evaluation in
the emergency department.
Past History
Past History
ED Past Medical History: Arrthythmia (A fib, SVT), Cancer (Breast cancer), HTN, Hypothyroidism, Other (Anemia) and Other (breast CA)
ED Past Surgical History: Cardiac (A-fib ablation 2016, December 2022, January 30, 2023; pacemaker October 2023) and Other (lumpectomy with mastectomy)
Social History
Tobacco: Non-smoker
Alcohol: None
Drug: None
Personal:
Living: with family
Employment: Retired
Family History
Family History: Other (Noncontributory)
Review of Systems
Review of Systems
Allergies reviewed?: Yes
All Other Systems: ROS reviewed and negative except as documented in HPI and ROS
Phy Exam
Physical Exam
Physical Exam:
Vitals: Hypertensive, otherwise vital signs stable. Afebrile
General: Patient is in no distress
Skin: Warm and dry, no rashes or lesions
Head: Normocephalic, atraumatic
Eyes: Sclera nonicteric. Pupils equal round and reactive to light bilaterally. EOMs intact. No nystagmus.
Throat: Protecting airway
Neck: Normal ROM, no cervical spine tenderness, no meningismus
Cardiac: Irregularly irregular rhythm, regular rate, no murmurs.
Pulm: Normal respiratory effort, no wheezes, rales, rhonchi heard on exam
.
Abdomen: No abdominal tenderness.
Extremities: No evidence of cyanosis or edema. Strength 5/5 in bilateral upper and lower extremities. Sensation intact.
Neuro: AAOx3. CN II-XII grossly intact on examination. No facial droop or asymmetry. Fluid speech. No focal neurologic deficits.
Psychiatric: Normal affect.
Course
Orders/Labs/Results
Orders:
Orders
06/03/25 13:05
CMP [Comprehensive Metabolic Panel] Urgent
Complete Blood Count/With Diff Urgent
06/03/25 15:32
CT Head W/o Iv Contrast Urgent
Comment:
Reason For Exam: headache following Watchman procedure
0.9% Sodium Chloride 1000 ml [Nss] 1,000 ml IV BOLUS
Acetaminophen [Tylenol] 650 mg PO NOW STA
06/03/25 15:59
COVID-19 Antigen Urgent
Source: Nasal Swab
Abnormal Lab Results
06/03/25
13:05
RBC 4.07 L 10^6/uL
(4.20-5.40)
Hgb 9.8 L g/dL
(12.0-16.0)
Hct 30.3 L %
(37.0-47.0)
MCV 74.4 L fL
(81.0-99.0)
MCH 24.1 L pg
(27.0-31.0)
MCHC 32.3 L g/dL
(33.0-37.0)
RDW 26.8 H %
(11.5-14.5)
Plt Count 1117 H 10^3/uL
(130-400)
Abs Immat Gran (auto) 0.1 H 10^3/uL
(0-0.05)
Absolute Neuts (auto) 9.0 H 10^3/uL
(1.4-6.5)
Absolute Lymphs (auto) 0.9 L 10^3/uL
(1.2-3.4)
Immature Gran % 0.7 H %
(0-0.5)
Neutrophils % 84.1 H %
(42.2-75.2)
Lymphocytes % 8.7 L %
(20.5-51.1)
Sodium 133 L mmol/L
(135-145)
Potassium 5.3 H mmol/L
(3.5-5.1)
Glucose 114 H mg/dl
(70-99)
Total Protein 8.4 H g/dl
(6.3-8.2)
Albumin 5.1 H g/dl
(3.5-5.0)
06/03/25 13:05
06/03/25 13:05
Vital Signs
Initial and Last Documented VS:
Initial Vital Signs
Temp Pulse Resp BP Pulse Ox
98.5 F 94 18 152/90 98
06/03/25 12:52 06/03/25 12:52 06/03/25 12:52 06/03/25 12:52 06/03/25 12:52
Last Documented Vital Signs
Temp Pulse Resp BP Pulse Ox
97.9 F 71 20 154/85 100
06/03/25 15:18 06/03/25 15:18 06/03/25 15:18 06/03/25 15:18 06/03/25 16:05
MDM/Problems Addressed
Differential Diagnosis Includes:
Not limited to: Medication side effect, acute dehydration, intracerebral hemorrhage, migraine headache, tension headache, etc.
MDM/Problems Addressed:
80-year-old female anticoagulated on Eliquis presenting with headache X2 days after watchmen device placement. Mild associated nausea and photophobia. No other neurologic symptoms such as vomiting, dizziness, ataxia, dysarthria, dysphasia. No fevers
or infectious symptoms.
Vitals and physical exam as above. Patient in no distress with normal neurologic exam. Cardio/pulmonary assessment unremarkable.
Differential as above. Possible dehydration, viral illness, or medication side effect from anesthesia/recent procedure. Less likely intracranial hemorrhage, however, would be on differential given patient is anticoagulated.
Prior to my evaluation, basic labs were obtained. Mild anemia and suspected reactive thrombocytosis for which patient follows with hematology.
ED plan: will obtain head CT. Will give Tylenol, IV fluids, and reassess.
Update: Head CT without acute abnormalities. Viral studies negative. On reassessment � patient�s headache has significantly improved with Tylenol and she feels better. She remains well appearing without any neurological deficits. Her daughter is at
bedside. 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
Advised pt to stay well hydrated, take Tylenol for pain. Return precautions discussed.
Case discussed with attending physician.
Chronic conditions affecting care:
Atrial fibrillation on Eliquis with recent Watchman device placement, hypertension
Acute Exacerbation and/or Progression of Chronic Illness:
Acutely hypertensive
*Pulse Oximetry
SaO2: 100
Oxygen Mode of Delivery: Room air
Patient hypoxic: no
*EKG
Interpreted by ED Provider?: NA
*Reimbursement Manager Interpretation
Rate: Reimbursement Manager- N/A
*Critical Care Note
Total Time (30-74mins, 75-104mins- exclusive of procedures): Not Applicable
Data Reviewed
Review of Other/Old Records Reveals: Operative Reports (Procedure report from 06/01/2025 for Watchman device placement with Dr. Martínez)
ED Attending Note
-
Portions of this chart may have been created with voice recognition software.� Occasional wrong word or��sound alike� substitutions may have occurred due to the inherent limitations of voice recognition software.
Discharge Plan
Departure
Patient Disposition: Home (Routine Discharge)
Date of Disposition: 06/03/25
Time of Disposition: 18:07
Patient with high blood pressure during this ER visit?: Yes
Condition: Good
Discharge Problem:
Headache
Instructions: Headache, Adult (DC), BLOOD PRESSURE
Prescriptions:
No Action
Eliquis 5 MG tablet
5 mg PO BID
latanoprost 0.005 % Drops
1 drp LEFT EYE HS
alendronate [Fosamax] 70 mg Tablet
70 mg PO SORENSEN@0800
verapamil 120 mg Tablet Extended Release
240 mg PO DAILY
levothyroxine 88 mcg Tablet
88 mcg PO DAILY
metoprolol succinate 50 MG tablet extended release 24 hr
50 mg PO DAILY
cyanocobalamin (vitamin B-12) 1,000 mcg Tablet
1,000 mcg PO DAILY
ferrous sulfate 324 mg (65 mg iron) Tablet,Delayed Release (Dr/Ec)
324 mg PO DAILY
cholecalciferol (vitamin D3) [Vitamin D3] 50 mcg (2,000 unit) Tablet
50 mcg PO DAILY
magnesium oxide 400 mg magnesium Tablet
400 mg PO DAILY
Hydroxy Urea
65 mg PO DAILY
Referrals:
Hector Simmons MD [Active, Cardiology] - Keep scheduled appt
Radha Wyatt DO [Family Provider, Family Practice] - Follow up in 5-7 days
Activity Restrictions/Additional Instructions:
RETURN TO THE EMERGENCY DEPARTMENT ANY SEVERE HEADACHE OR NECK PAIN, INTRACTABLE NAUSEA/VOMITING, VISUAL CHANGES, WEAKNESS OR NUMBNESS IN EXTREMITIES, CHANGES IN MENTAL STATUS, LIGHTHEADEDNESS OR DIZZINESS, WORSENING IN CURRENT SYMPTOMS, OR ANY
OTHER CONCERNS
- As discussed�your head CT showed no acute abnormalities. You were found to be anemic and have an elevated platelet level today. Please continue to follow with your kennel hand.
- It is important stay well-hydrated. You can continue to take Tylenol as needed for headache. Do not exceed 3000 mg/day.
- Follow-up with your primary care and credit and loan collections supervisor for further evaluation/management and to ensure that your symptoms are improving
Monitor your symptoms closely and return to the emergency department with any acute worsening/new symptoms or any other concerns
Interventions
Interventions:
*Risk Screen - Suicide Last Done: 06/03/25 12:52
*General Assessment Last Done: 06/03/25 12:52
*Neglect/Abuse Screening Last Done: 06/03/25 12:52
*ED- Fall Risk Assessment Last Done: 06/03/25 16:14
*ED COVID-19 Vaccine History Last Done: 06/03/25 16:14
*Nursing Disposition Last Done: 06/03/25 18:54
ED- Neurological Assessment Last Done: 06/03/25 16:12
Discharge Date and Time
Discharge Date/Time: 06/03/25 18:56
Print Language: JAMAICAN
[2025-06-03] MEDS: NSS 1000 IV ×2 (15:57→17:00)
[2025-06-03 17:06] LABS: COVID-19 Antigen Negative (Negative)
== END 2025-06-03 18:56 | disposition home or self-care (01) ==
LOC: EMR 12:47
PROVIDERS: Emergency Medicine; Physician Assistant; EMERGENCY PHYSICIAN Student in an Organized Health Care Education/Training Program; FAMILY PHYSICIAN Family Medicine
DX: R51.9 Headache, unspecified (principal); D64.9 Anemia, unspecified; I48.91 Unspecified atrial fibrillation; I10 Essential (primary) hypertension; E78.5 Hyperlipidemia, unspecified; E03.9 Hypothyroidism, unspecified; Z79.01 Long term (current) use of anticoagulants; Z95.0 Presence of cardiac pacemaker; Z85.3 Personal history of malignant neoplasm of breast; Z90.10 Acquired absence of unspecified breast and nipple
CPT/HCPCS: 99284; 96360; 70450; 80053; 85025; 87811

== ENCOUNTER 2025-07-14 11:37 | Emergency (ER) | payer MEDICARE, SELFPAY ==
[2025-07-14 11:40] VITALS: BP 182/110
[2025-07-14 11:55] VITALS: BMI 25.2
[2025-07-14 12:00] VITALS: BP 158/85
[2025-07-14 12:01] LABS: Hematocrit 24.4 % (37.0-47.0); Hemoglobin 7.7 g/dL (12.0-16.0); Mean Corp Hgb Conc. 31.6 g/dL (33.0-37.0); Mean Corpuscular Volume 80.3 fL (81.0-99.0); Platelet Count 1305 10^3/uL (130-400); Red Cell Dist. Width 24.3 % (11.5-14.5)
--- NOTE | 2025-07-14 12:12 | ED.GENMED ---
History of Present Illness
General
Chief Complaint: Vomiting Blood
Source: patient, records, family and previous hospital records
Exam Limitations: none
Time Seen by Provider: 07/14/25 11:53
Nursing documentation reviewed up to this point in time: agreed with
History of Present Illness
History of Present Illness:
80-year-old female status post Watchman about 6 weeks ago, was on Eliquis twice daily told she needs to take it for about 3 months afterward,
States she has been spitting up blood for about an hour she has had GI bleeding previously apparently, seen by Dr. Mehta admitted,
In the ER looks like she has a small laceration looks like a bite on her right tongue, is the source of her bleeding
Denies any GI bleeding no hematuria no syncope
Apparently she has chronic anemia,
Past History
Past History
ED Past Medical History: Arrthythmia (A fib, SVT), Cancer (Breast cancer), HTN, Hypothyroidism, Other (Anemia) and Other (breast CA)
ED Past Surgical History: Cardiac (A-fib ablation 2016, December 2022, January 30, 2023; pacemaker October 2023) and Other (lumpectomy with mastectomy)
Social History
Tobacco: Non-smoker
Alcohol: None
Drug: None
Personal:
Living: with family
Employment: Retired
Family History
Family History: Other (Noncontributory)
Phy Exam
Physical Exam
Physical Exam:
Physical Exam
General: no apparent distress, not acutely ill
Neck: 0.3 cm oozing wound from her distal tongue
Heart: s1/s2 regular rate and rhythm, no murmur. equal radial pulses.
Lungs: no acute respiratory distress.
Neuro: alert and oriented. no focal neurological deficits
Skin: no rash
Psychiatric: well kept. interactive and cooperative
Extremities: no edema.
Course
Orders/Labs/Results
Orders:
Orders
07/14/25 11:45
Type+Screen Urgent
Complete Blood Count/With Diff Urgent
Comprehensive Metabolic Panel Urgent
Manual Differential Urgent
Abnormal Lab Results
07/14/25
11:45
RBC 3.04 L 10^6/uL
(4.20-5.40)
Hgb 7.7 L g/dL
(12.0-16.0)
Hct 24.4 L %
(37.0-47.0)
MCV 80.3 L fL
(81.0-99.0)
MCH 25.3 L pg
(27.0-31.0)
MCHC 31.6 L g/dL
(33.0-37.0)
RDW 24.3 H %
(11.5-14.5)
Plt Count 1305 H 10^3/uL
(130-400)
MPV 11.3 H fL
(7.4-10.4)
Band Neutrophils 4 H %
(0-3)
Sodium 132 L mmol/L
(135-145)
Glucose 144 H mg/dl
(70-99)
07/14/25 11:45
07/14/25 11:45
Vital Signs
Initial and Last Documented VS:
Initial Vital Signs
Temp Pulse Resp BP Pulse Ox
98.5 F 101 16 182/110 100
07/14/25 11:40 07/14/25 11:40 07/14/25 11:40 07/14/25 11:40 07/14/25 11:40
Last Documented Vital Signs
Temp Pulse Resp BP Pulse Ox
98.5 F 81 21 151/76 100
07/14/25 11:40 07/14/25 13:00 07/14/25 13:00 07/14/25 13:00 07/14/25 12:14
MDM/Problems Addressed
Differential Diagnosis Includes:
Anemia coagulopathy tongue bite
MDM/Problems Addressed:
Tongue bite anemia
Chronic conditions affecting care: Arrhythmia
Acute Exacerbation and/or Progression of Chronic Illness: Arrhythmia
*Pulse Oximetry
SaO2: 100
Oxygen Mode of Delivery: Room air
Patient hypoxic: no
*Critical Care Note
Total Time (30-74mins, 75-104mins- exclusive of procedures): Not Applicable
Update Note
Update Note:
Bleeding appears to have subsided, will have him hold his Eliquis tonight
ED Attending Note
-
Portions of this chart may have been created with voice recognition software.� Occasional wrong word or��sound alike� substitutions may have occurred due to the inherent limitations of voice recognition software.
Discharge Plan
Departure
Patient Disposition: Home (Routine Discharge)
Date of Disposition: 07/14/25
Time of Disposition: 13:07
Patient with high blood pressure during this ER visit?: No
Condition: Good
Discharge Problem:
Hemorrhage of tongue
Instructions: Wound Inside The Mouth
Prescriptions:
No Action
Eliquis 5 MG tablet
5 mg PO BID
latanoprost 0.005 % Drops
1 drp LEFT EYE HS
alendronate [Fosamax] 70 mg Tablet
70 mg PO SORENSEN@0800
verapamil 120 mg Tablet Extended Release
240 mg PO DAILY
levothyroxine 88 mcg Tablet
88 mcg PO DAILY
metoprolol succinate 50 MG tablet extended release 24 hr
50 mg PO DAILY
cyanocobalamin (vitamin B-12) 1,000 mcg Tablet
1,000 mcg PO DAILY
ferrous sulfate 324 mg (65 mg iron) Tablet,Delayed Release (Dr/Ec)
324 mg PO DAILY
cholecalciferol (vitamin D3) [Vitamin D3] 50 mcg (2,000 unit) Tablet
50 mcg PO DAILY
magnesium oxide 400 mg magnesium Tablet
400 mg PO DAILY
Hydroxy Urea
65 mg PO DAILY
Activity Restrictions/Additional Instructions:
No Eliquis today, restart tomorrow
Hold pressure to your tongue
Return to the ER if any concerns
Interventions
Interventions:
*Risk Screen - Suicide Last Done: 07/14/25 11:41
*General Assessment Last Done: 07/14/25 13:07
*Neglect/Abuse Screening Last Done: 07/14/25 11:41
*ED- Fall Risk Assessment Last Done: 07/14/25 13:07
*ED COVID-19 Vaccine History Last Done: 07/14/25 13:07
*ED Influenza Vaccine History Last Done: 07/14/25 13:07
MU-Smtalu-Utrubsmfay Assessment Last Done: 07/14/25 13:00
ED- Cardiac Assessment Last Done: 07/14/25 13:00
ED- Pulmonary Assessment Last Done: 07/14/25 13:00
Discharge Date and Time
Print Language: NORWEGI[place]
[2025-07-14 12:38] LABS: ALT (SGPT) 22 U/L (0-35); AST (SGOT) 28 U/L (14-36); Albumin 4.1 g/dl (3.5-5.0); Alkaline Phosphatase 99 U/L (38-126); Blood Urea Nitrogen 11 mg/dl (7-17); Calcium 9.1 mg/dl (8.4-10.2); Carbon Dioxide 23 mmol/L (22-30); Chloride 102 mmol/L (98-107); Estimated Creatinine Clearance 52 ml/min; Glucose 144 mg/dl (70-99); Potassium 5.0 mmol/L (3.5-5.1); Sodium 132 mmol/L (135-145); Total Protein 7.4 g/dl (6.3-8.2); eGFR > 60.00
[2025-07-14 12:57] LABS: Absolute Neutrophils -Man Diff 5.9 10^3/uL (1.4-6.5); Anisocytosis 1+; Hypochromasia 1+; Normal RBC Morphology No; Platelets Checked Yes; Polychromasia 1+
[2025-07-14 12:58] LABS: Acanthocytes 1+; Ovalocytes 1+; Target Cells 1+; Total Cells Counted 100
[2025-07-14 13:00] VITALS: BP 151/76
== END 2025-07-14 13:46 | disposition home or self-care (01) ==
LOC: EMR 11:37
PROVIDERS: EMERGENCY PHYSICIAN Emergency Medicine; FAMILY PHYSICIAN Family Medicine
DX: K14.8 Other diseases of tongue (principal); I48.91 Unspecified atrial fibrillation; I10 Essential (primary) hypertension; D64.9 Anemia, unspecified; E03.9 Hypothyroidism, unspecified; Z79.01 Long term (current) use of anticoagulants; Z95.0 Presence of cardiac pacemaker; Z85.3 Personal history of malignant neoplasm of breast; Z90.10 Acquired absence of unspecified breast and nipple
CPT/HCPCS: 99283; 80053; 85025; 86850; 86900; 86901

== ENCOUNTER → 2025-07-22 09:27 | Outpatient (REF) | payer MEDICARE, SELFPAY | LOC: SDSPAT 09:27 | PROVIDERS: ATTENDING PHYSICIAN Internal Medicine Cardiovascular Disease; FAMILY PHYSICIAN Internal Medicine; OTHER PHYSICIAN Internal Medicine | DX: I48.0 Paroxysmal atrial fibrillation (principal) | CPT/HCPCS: 93005 ==

== ENCOUNTER 2025-08-05 07:00 | Day surgery (SDC) | payer MEDICARE, SELFPAY ==
[2025-07-22 09:35] VITALS: BMI 26.8
[2025-08-05 07:57] VITALS: BMI 25.8
[2025-08-05] MEDS: ELIQUIS 5 MG PO (08:19)
== END 2025-08-05 09:27 | disposition home or self-care (01) ==
LOC: CATH 07:00
PROVIDERS: ATTENDING PHYSICIAN Internal Medicine Cardiovascular Disease; FAMILY PHYSICIAN Internal Medicine; OTHER PHYSICIAN Internal Medicine
DX: Z45.09 Encounter for adjustment and management of other cardiac device (principal); D56.0 Alpha thalassemia; E03.9 Hypothyroidism, unspecified; E78.5 Hyperlipidemia, unspecified; I10 Essential (primary) hypertension; I47.10 Supraventricular tachycardia, unspecified; I48.0 Paroxysmal atrial fibrillation; M85.80 Other specified disorders of bone density and structure, unspecified site; Z79.01 Long term (current) use of anticoagulants; Z79.890 Hormone replacement therapy; Z79.899 Other long term (current) drug therapy; Z85.3 Personal history of malignant neoplasm of breast; Z88.8 Allergy status to other drugs, medicaments and biological substances; Z90.12 Acquired absence of left breast and nipple; Z92.21 Personal history of antineoplastic chemotherapy; Z92.3 Personal history of irradiation; Z95.818 Presence of other cardiac implants and grafts; Z90.49 Acquired absence of other specified parts of digestive tract; D64.9 Anemia, unspecified; Q79.60 Ehlers-Danlos syndrome, unspecified
CPT/HCPCS: 93312; 93320; 93325